=== PATIENT | male | born 1940 | race Caucasian/White ===

== ENCOUNTER 2018-03-19 12:21 | Day surgery (SDC) | payer MEDICARE ==
[~2018-03-19] VITALS: Ht 175.3 cm; Wt 129.1 kg
[~2018-03-19 12:21] MED LIST: AMLO5TAB95 PO; ATOR20TA66 PO; GLIP10TA11 PO; HYDR25TA4 PO; LIDOcaine Viscous 15ml cup ONE; LOSA100T28 PO; MIDAZolam 5mg/5ml vial ONE; PANT-47 PO; PIOG30TA71 PO; VENL75TA90 PO; fentaNYL/PF 50MCG/1 ML 2ML syringe ONE
[2018-03-19 12:30] VITALS: BP 163/81
[2018-03-19] MEDS ORDERED: GLIP5TAB13 PO (12:41)
[2018-03-19] MEDS ORDERED: OMEP20TA5 PO (12:42)
[2018-03-19] MEDS ORDERED: HYDR12.5 PO (12:44)
[2018-03-19] MEDS ORDERED: LINA5TAB4 PO (12:46)
[2018-03-19] MEDS ORDERED: DABI75CA3 PO (12:47)
[2018-03-19 13:18] VITALS: BP 144/78
[2018-03-19 13:28] VITALS: BP 143/65
[2018-03-19 13:38] VITALS: BP 140/66
[2018-03-19 13:48] VITALS: BP 148/68
== END 2018-03-19 12:55 | disposition home or self-care (01) ==
LOC: GI LAB 12:21
PROVIDERS: ATTEND Internal Medicine Gastroenterology
DX: R10.13 Epigastric pain (principal); I48.91 Unspecified atrial fibrillation; K21.9 Gastro-esophageal reflux disease without esophagitis; M19.90 Unspecified osteoarthritis, unspecified site; F32.9 Major depressive disorder, single episode, unspecified; I25.10 Atherosclerotic heart disease of native coronary artery without angina pectoris; E78.5 Hyperlipidemia, unspecified; I12.0 Hypertensive chronic kidney disease with stage 5 chronic kidney disease or end stage renal disease; E11.22 Type 2 diabetes mellitus with diabetic chronic kidney disease; N18.9 Chronic kidney disease, unspecified; G47.33 Obstructive sleep apnea (adult) (pediatric); Z98.84 Bariatric surgery status; Z90.89 Acquired absence of other organs; Z72.89 Other problems related to lifestyle; Z88.6 Allergy status to analgesic agent; Z88.5 Allergy status to narcotic agent; Z90.49 Acquired absence of other specified parts of digestive tract; Z79.01 Long term (current) use of anticoagulants; Z79.899 Other long term (current) drug therapy; Z98.890 Other specified postprocedural states
CPT/HCPCS: 43235; J2250; J3010; J7030; A4620; G0500

== ENCOUNTER 2018-09-05 12:07 | Emergency (ER) | payer MEDICARE ==
[~2018-09-05] VITALS: Ht 172.7 cm; Wt 129.5 kg
[~2018-09-05 12:07] MED LIST changes: -AMLO5TAB95 PO; +DABI75CA3 PO; -GLIP10TA11 PO; +GLIP5TAB13 PO; +HYDR12.5 PO; -LIDOcaine Viscous 15ml cup ONE; +LINA5TAB4 PO; +LOSA100T15 PO; -LOSA100T28 PO; -MIDAZolam 5mg/5ml vial ONE; +OMEP20TA5 PO; -PANT-47 PO; -fentaNYL/PF 50MCG/1 ML 2ML syringe ONE
[2018-09-05 13:11] LABS: BASOPHILS % (AUTO) 0.1 % (0-1); EOSINOPHILS % (AUTO) 0.2 % (0-6); HEMATOCRIT 43.9 % (42.0-52.0); HEMOGLOBIN 14.7 g/dl (14.0-17.9); LYMPHOCYTES # (AUTO) 0.3 X10'3 (1.1-4.8); LYMPHOCYTES % (AUTO) 5.4 % (21-51); MEAN CORPUSCULAR HEMOGLOBIN 32.2 PG (27.0-31.0); MEAN CORPUSCULAR HGB CONC 33.4 % (33.0-36.5); MEAN CORPUSCULAR VOLUME 96.3 FL (78-98); MEAN PLATELET VOLUME 7.6 FL (7.4-10.4); MONOCYTES # (AUTO) 0.4 X10'3 (0-0.9); MONOCYTES % (AUTO) 6.9 % (2-12); NEUTROPHILS # (AUTO) 4.5 X10'3 (1.8-7.7); NEUTROPHILS % (AUTO) 87.4 % (42-75); PLATELET COUNT 219 X10'3 (140-440); RED BLOOD COUNT 4.56 X10'6 (4.70-6.10); RED CELL DISTRIBUTION WIDTH 15.1 % (11.5-14.5); WHITE BLOOD COUNT 5.2 X10'3 (4.5-11.0)
[2018-09-05 13:35] LABS: ALANINE AMINOTRANSFERASE 36 U/L (12-78); ALBUMIN 3.2 G/DL (3.4-5.0); ALBUMIN/GLOBULIN RATIO 0.9 (1.1-1.5); ALKALINE PHOSPHATASE 82 IU/L (46-116); ANION GAP 7 (8-16); ASPARTATE AMINO TRANSFERASE 56 U/L (10-37); BILIRUBIN,TOTAL 0.7 MG/DL (0.1-1.0); BLOOD UREA NITROGEN 25 MG/DL (7-18); BUN/CREATININE RATIO 15.2 (5.4-32.0); CALCIUM 8.8 MG/DL (8.5-10.1); CHLORIDE 97 MMOL/L (99-107); CREATININE 1.64 MG/DL (0.60-1.10); GLUCOSE 92 MG/DL (70-104); INR 1.1 INR; PARTIAL THROMBOPLASTIN TIME 42 SECONDS (22-32); POTASSIUM 3.8 MMOL/L (3.5-5.1); PROTHROMBIN TIME 11.5 SECONDS (9.0-12.0); SODIUM 135 MMOL/L (135-145); TOTAL CARBON DIOXIDE 30.7 MMOL/L (24-32); TOTAL PROTEIN 6.6 G/DL (6.4-8.2); eGFR 41 ML/MIN
[2018-09-05] MEDS ORDERED: ONDA4TAB9 SL (13:53)
[2018-09-05 14:01] LABS: ETHANOL < 0.010 GM/DL (0.0-0.010)
[2018-09-05 14:17] LABS: CLARITY,URINE CLEAR (Clear); COLOR,URINE YELLOW (Yellow); GLUCOSE, URINE NEGATIVE (Neg); KETONES,URINE NEGATIVE (Neg); LEUKOCYTE ESTERASE ,URINE NEGATIVE (Neg); NITRITES, URINE NEGATIVE (Neg); OCCULT BLOOD,URINE SMALL (Neg); PH,URINE 5.5 (4.8-8.0); PROTEIN,URINE TRACE mg/dl (Neg); UROBILINOGEN,URINE 0.2 E.U/dL (0.2-1.0)
[2018-09-05 14:18] VITALS: BP 176/84
[2018-09-05 14:23] LABS: UA COLLECTION TYPE CLN CATCH MIDSTREAM
[2018-09-05 14:24] LABS: BACTERIA,URINE NONE SEEN /HPF (Neg); MUCUS STRANDS NONE SEEN /LPF (Neg); RBC,URINE 0-2 /HPF (0-2); SQUAMOUS EPITHELIAL CELL,UR NONE SEEN /LPF (FEW); WBC,URINE NONE SEEN /HPF (0-4)
== END 2018-09-05 14:20 | disposition home or self-care (01) ==
LOC: ER 12:08
DX: B34.9 Viral infection, unspecified (principal); I12.9 Hypertensive chronic kidney disease with stage 1 through stage 4 chronic kidney disease, or unspecified chronic kidney disease; E11.22 Type 2 diabetes mellitus with diabetic chronic kidney disease; N18.9 Chronic kidney disease, unspecified; K21.9 Gastro-esophageal reflux disease without esophagitis; E78.00 Pure hypercholesterolemia, unspecified; M19.90 Unspecified osteoarthritis, unspecified site; Z90.49 Acquired absence of other specified parts of digestive tract; Z88.6 Allergy status to analgesic agent; Z88.5 Allergy status to narcotic agent; Z79.899 Other long term (current) drug therapy; Z60.2 Problems related to living alone
CPT/HCPCS: 36415; 71045; 80053; 80320; 81001; 83605; 84145; 84484; 85025; 85610; 85730; 87040; 93005; 99284

== ENCOUNTER 2018-10-22 12:09 | Emergency (ER) | payer MEDICARE ==
[~2018-10-22] VITALS: Ht 170.2 cm; Wt 131.8 kg
[~2018-10-22 12:09] MED LIST changes: -LOSA100T15 PO; +LOSA100T57 PO
[2018-10-22 13:00] LABS: BASOPHILS % (AUTO) 0.3 % (0-1); EOSINOPHILS # (AUTO) 0.1 X10'3 (0-0.9); EOSINOPHILS % (AUTO) 1.2 % (0-6); HEMOGLOBIN 13.6 g/dl (14.0-17.9); LYMPHOCYTES # (AUTO) 0.9 X10'3 (1.1-4.8); LYMPHOCYTES % (AUTO) 14.9 % (21-51); MEAN CORPUSCULAR HEMOGLOBIN 32.4 PG (27.0-31.0); MEAN CORPUSCULAR HGB CONC 33.1 % (33.0-36.5); MEAN CORPUSCULAR VOLUME 97.8 FL (78-98); MONOCYTES # (AUTO) 0.5 X10'3 (0-0.9); MONOCYTES % (AUTO) 7.4 % (2-12); NEUTROPHILS # (AUTO) 4.6 X10'3 (1.8-7.7); NEUTROPHILS % (AUTO) 76.2 % (42-75); PLATELET COUNT 311 X10'3 (140-440); RED BLOOD COUNT 4.19 X10'6 (4.70-6.10); WHITE BLOOD COUNT 6.1 X10'3 (4.5-11.0)
[2018-10-22 13:19] LABS: ALANINE AMINOTRANSFERASE 28 U/L (12-78); ALBUMIN 3.6 G/DL (3.4-5.0); ALBUMIN/GLOBULIN RATIO 1.1 (1.1-1.5); ALKALINE PHOSPHATASE 147 IU/L (46-116); ANION GAP 9 (8-16); ASPARTATE AMINO TRANSFERASE 43 U/L (10-37); BILIRUBIN,TOTAL 0.7 MG/DL (0.1-1.0); BLOOD UREA NITROGEN 23 MG/DL (7-18); BUN/CREATININE RATIO 18.7 (5.4-32.0); CHLORIDE 102 MMOL/L (99-107); CREATININE 1.23 MG/DL (0.60-1.10); GLUCOSE 179 MG/DL (70-104); POTASSIUM 4.3 MMOL/L (3.5-5.1); SODIUM 141 MMOL/L (135-145); TOTAL CARBON DIOXIDE 29.7 MMOL/L (24-32); TOTAL PROTEIN 6.9 G/DL (6.4-8.2); eGFR 57 ML/MIN
[2018-10-22 13:22] LABS: INR 1.1 INR; PARTIAL THROMBOPLASTIN TIME 34 SECONDS (22-32); PROTHROMBIN TIME 10.7 SECONDS (9.0-12.0)
[2018-10-22 15:02] LABS: D-DIMER 0.68 MG/L FEU (0-0.50)
--- NOTE | 2018-10-22 15:11 | NUR ---
gait walk pt tolerated well. ambulated 50 ft, hr 78, 02 sat 95%
[2018-10-22 16:22] VITALS: BP 177/86
== END 2018-10-22 16:24 | disposition home or self-care (01) ==
LOC: ER 12:09
DX: R06.09 Other forms of dyspnea (principal); E78.00 Pure hypercholesterolemia, unspecified; I10 Essential (primary) hypertension; K21.9 Gastro-esophageal reflux disease without esophagitis; E11.9 Type 2 diabetes mellitus without complications; M19.90 Unspecified osteoarthritis, unspecified site; Z90.49 Acquired absence of other specified parts of digestive tract; Z98.890 Other specified postprocedural states; Z98.84 Bariatric surgery status; Z88.6 Allergy status to analgesic agent; Z88.5 Allergy status to narcotic agent; Z79.899 Other long term (current) drug therapy
CPT/HCPCS: 36415; 71045; 80053; 83880; 84484; 85025; 85379; 85610; 85730; 93005; 99284

== ENCOUNTER 2019-01-01 21:15 | Emergency (ER) | payer MEDICARE ==
[~2019-01-01] VITALS: Ht 157.5 cm; Wt 120.5 kg
[2019-01-01] MEDS ORDERED: acetaminophen 325mg tablet PO ONE (21:50)
[2019-01-01] MEDS ORDERED: normal saline 1000ML IV soln IVB ONE (21:55)
[2019-01-01] MEDS ORDERED: TETanus/Pertussis (Acell)/Diphther VAC/PF (Tdap-Adult) 0.5ml syringe IM ONE (21:55)
[2019-01-01] MEDS ORDERED: LIDOcaine 1% w/epiNEPHrine 1:200,000 30ml vial IM ONE (21:55)
[2019-01-01 23:12] VITALS: BP 149/76
== END 2019-01-01 23:15 | disposition home or self-care (01) ==
LOC: ER 21:19
DX: S06.0X0A Concussion without loss of consciousness, initial encounter (principal); S01.01XA Laceration without foreign body of scalp, initial encounter; I48.91 Unspecified atrial fibrillation; E78.00 Pure hypercholesterolemia, unspecified; I10 Essential (primary) hypertension; K21.9 Gastro-esophageal reflux disease without esophagitis; E11.9 Type 2 diabetes mellitus without complications; M19.90 Unspecified osteoarthritis, unspecified site; Z90.49 Acquired absence of other specified parts of digestive tract; Z90.89 Acquired absence of other organs; Z98.890 Other specified postprocedural states; Z88.5 Allergy status to narcotic agent; Z88.6 Allergy status to analgesic agent; Z79.899 Other long term (current) drug therapy; W01.190A Fall on same level from slipping, tripping and stumbling with subsequent striking against furniture, initial encounter; Y93.89 Activity, other specified; Y92.89 Other specified places as the place of occurrence of the external cause; Y99.8 Other external cause status
CPT/HCPCS: 12002; 70450; 93005; 99284; J3490

== ENCOUNTER 2019-02-17 12:42 | Outpatient (CLI) | payer MEDICARE | END 2019-02-17 23:59 | disposition home or self-care (01) | LOC: CARD DIAG 12:42 | PROVIDERS: ATTEND Internal Medicine Critical Care Medicine | DX: I34.0 Nonrheumatic mitral (valve) insufficiency (principal) | CPT/HCPCS: 93306 ==

== ENCOUNTER 2019-07-26 10:55 | Inpatient (IN) | payer MEDICARE ==
[~2019-07-26] VITALS: Ht 172.7 cm; Wt 125.0 kg
[~2019-07-26 10:55] MED LIST changes: +etomidate 2mg/ml inj. ONE; +sod chloride 0.9% 10ml flush syringe IV ONE
[2019-07-26 11:39] LABS: BASOPHILS % (AUTO) 0.1 % (0-1); EOSINOPHILS % (AUTO) 0.2 % (0-6); HEMATOCRIT 47.1 % (42.0-52.0); LYMPHOCYTES # (AUTO) 0.4 X10'3 (1.1-4.8); LYMPHOCYTES % (AUTO) 4.4 % (21-51); MEAN CORPUSCULAR HEMOGLOBIN 32.9 PG (27.0-31.0); MEAN CORPUSCULAR HGB CONC 33.9 g/dL (33.0-36.5); MEAN PLATELET VOLUME 7.9 FL (7.4-10.4); MONOCYTES # (AUTO) 0.4 X10'3 (0-0.9); MONOCYTES % (AUTO) 4.1 % (2-12); NEUTROPHILS # (AUTO) 8.4 X10'3 (1.8-7.7); NEUTROPHILS % (AUTO) 91.2 % (42-75); PLATELET COUNT 265 X10'3 (140-440); RED BLOOD COUNT 4.85 X10'6 (4.70-6.10); WHITE BLOOD COUNT 9.2 X10'3 (4.5-11.0)
[2019-07-26 11:55] LABS: ALANINE AMINOTRANSFERASE 28 U/L (12-78); ALBUMIN 3.9 G/DL (3.4-5.0); ALKALINE PHOSPHATASE 121 IU/L (46-116); ANION GAP 14 (8-16); ASPARTATE AMINO TRANSFERASE 37 U/L (10-37); BLOOD UREA NITROGEN 23 MG/DL (7-18); BUN/CREATININE RATIO 12.5 (5.4-32.0); CALCIUM 9.7 MG/DL (8.5-10.1); CHLORIDE 95 MMOL/L (99-107); CREATININE 1.84 MG/DL (0.60-1.10); GLUCOSE 272 MG/DL (70-104); LIPASE 111 U/L (73-393); POTASSIUM 4.1 MMOL/L (3.5-5.1); SODIUM 137 MMOL/L (135-145); TOTAL PROTEIN 7.7 G/DL (6.4-8.2); eGFR 36 ML/MIN
[2019-07-26] MEDS ORDERED: ondansetron/PF 4mg/2ml inj IV ONE (12:25)
[2019-07-26] MEDS ORDERED: normal saline 1000ML IV soln IVB ONE (12:25)
[2019-07-26] MEDS ORDERED: pantoprazole 40 MG vial IV ONE (12:25)
[2019-07-26 12:32] LABS: CLARITY,URINE SLIGHTLY CLOUDY (Clear); GLUCOSE, URINE 250 mg/dl (Neg); KETONES,URINE >=80 mg/dl (Neg); LEUKOCYTE ESTERASE ,URINE NEGATIVE (Neg); NITRITES, URINE NEGATIVE (Neg); OCCULT BLOOD,URINE TRACE-INTACT (Neg); PH,URINE 5.5 (4.8-8.0); PROTEIN,URINE 100 mg/dl (Neg)
[2019-07-26 12:34] LABS: COLOR,URINE DARK YELLOW (Yellow); UA COLLECTION TYPE VOIDED
[2019-07-26 12:45] LABS: WBC,URINE 0-4 /HPF (0-4)
[2019-07-26 12:46] LABS: AMORPHOUS URATES 1+; BACTERIA,URINE FEW /HPF (Neg); RBC,URINE 0-2 /HPF (0-2); SQUAMOUS EPITHELIAL CELL,UR FEW /LPF (FEW)
--- NOTE | 2019-07-26 14:20 | NUR ---
relieving RN for break, Dr Rasheed at bedside to reeval pt, plan to admit to hospital for bowel obstruction,
[2019-07-26] MEDS ORDERED: mag hydrox/Alum hydrox/simeth 30ml oral suspension PO PRN (14:30)
[2019-07-26] MEDS: K and/or MAG REPLACEMENT MC SCH (14:30)
[2019-07-26] MEDS ORDERED: glucagon, human recombinant 1mg kit SUBCUT PRN (14:30)
[2019-07-26] MEDS ORDERED: potassium CL 10mEq/100ml bag 100 ML IV PRN ×2 (14:30)
[2019-07-26] MEDS ORDERED: magnesium Cl slow-release 64mg tablet PO PRN (14:30)
[2019-07-26] MEDS ORDERED: HYDROcodone/acetaminophen 5mg/325mg tablet PO PRN (14:30)
[2019-07-26] MEDS ORDERED: dextrose ORAL solution 15 GM/59 ML bottle PO PRN ×2 (14:30)
[2019-07-26] MEDS ORDERED: magnesium hydroxide 30ml (MOM) UD suspension PO PRN (14:30)
[2019-07-26] MEDS ORDERED: HYDROcodone/acetaminophen 10/325mg tab PO PRN (14:30)
[2019-07-26] MEDS ORDERED: potassium Cl 20 mEq SR tablet PO PRN ×2 (14:30)
[2019-07-26] MEDS ORDERED: morphine 2 MG/ML inj. syringe IV PRN (14:30)
[2019-07-26] MEDS ORDERED: magnesium 4gm in 100ml NS 100 ML IV PRN (14:30)
[2019-07-26] MEDS ORDERED: bisacodyl 10mg suppository rectal RC PRN (14:30)
[2019-07-26] MEDS ORDERED: diphenhydrAMINE 50 mg/ml inj IV PRN (14:30)
[2019-07-26] MEDS ORDERED: MESSAGE TO PHARMACY PO ONE (14:30)
[2019-07-26] MEDS ORDERED: acetaminophen 325mg tablet PO PRN ×2 (14:30)
[2019-07-26] MEDS ORDERED: magnesium 2GM in 50ml NS 50 ML IV PRN (14:30)
[2019-07-26] MEDS ORDERED: acetaminophen 650mg rectal suppository RC PRN (14:30)
[2019-07-26] MEDS ORDERED: dextrose 50%-water 50ml dispensing syringe IV PRN ×2 (14:30)
[2019-07-26] MEDS ORDERED: diphenhydrAMINE 25mg capsule PO PRN (14:30)
[2019-07-26] MEDS ORDERED: INSU100V12 SQ (14:41)
[2019-07-26] MEDS ORDERED: VENL-190 PO (14:41)
[2019-07-26] MEDS ORDERED: METO50TA17 PO (14:41)
[2019-07-26] MEDS ORDERED: FLEC100T2 PO (14:41)
[2019-07-26 14:57] LABS: HEMOGLOBIN A1C 7.6 % (4.5-6.2)
[2019-07-26] MEDS: diatr meglu/diatrizoate 30ml oral sol.-(3 dose) bottle PO SCH ×4 (15:20→21:00)
--- NOTE | 2019-07-26 15:35 | NUR ---
pt resting in bed, req pain medication, gastropen given, pt stable, new primary obtaining pain medication
[2019-07-26] MEDS: morphine 2 MG/ML inj. syringe IV PRN ×2 (15:46→19:42)
[2019-07-26] MEDS: normal saline 1000ml 1,000 ML IV SCH (15:50)
--- NOTE | 2019-07-26 16:12 | NUR ---
relieving RN for break, assembly technician aware pt received 2nd dose of gastroview
--- NOTE | 2019-07-26 17:10 | NUR ---
pt to be transferred to [facility]. Report called to DESMOND Miller for continuation of care.
--- NOTE | 2019-07-26 17:10 | NUR ---
Received report from DESMOND Rodriguez. Awaiting for patient arrival to room 344a.
[2019-07-26] MEDS: metoclopramide 5 mg/ml inj IV PRN ×2 (17:17→23:17)
[2019-07-26 17:30] VITALS: BP 176/76
[2019-07-26] MEDS: ondansetron/PF 4mg/2ml inj IV PRN (17:57)
--- NOTE | 2019-07-26 18:00 | NUR ---
Patient in room [facility] 344. I have received report from Michelle LOGAN and had the opportunity to ask questions and assume patient care.
--- NOTE | 2019-07-26 18:08 | NUR ---
Problems reprioritized. Patient report given, questions answered & plan of care reviewed with DESMOND Quan.
--- NOTE | 2019-07-26 18:09 | NUR ---
Received patient at 1730. Patient alert and oriented, hard of hearing and c/o feeling nauseated. Zofran administered as ordered. Patient oriented to room and call light. Call light placed within patient's reach.
[2019-07-26 20:10] VITALS: BP 154/91
[2019-07-26] MEDS: flecainide 50mg tablet PO SCH (20:14)
[2019-07-26] MEDS ORDERED: temazepam 15mg capsule PO PRN (21:00)
[2019-07-26] MEDS ORDERED: losartan 50mg tablet PO SCH (21:00)
[2019-07-26] MEDS ORDERED: atorvastatin 10mg tablet PO SCH (21:00)
[2019-07-26] MEDS: insulin glargine (Lantus) pen - multi-dose SQ SCH (21:11)
[2019-07-26] MEDS: insulin Lispro (HumaLOG) vial - multi-dose SQ SCH (21:12)
--- NOTE | 2019-07-26 22:06 | NUR ---
per tele hr was up to 120'3 to 130's. pt was up to bathroom, back in bed now, assymptomatic. hr is coming down now. Addendum: 07/26/19 at 2206 by Misha Crockett RN Amended: Links added.
[2019-07-26] MEDS ORDERED: LORazepam 2 mg/ml vial IV PRN (23:40)
[2019-07-26] MEDS ORDERED: LORazepam 1 MG tablet PO PRN (23:40)
[2019-07-26] MEDS: thiamine 100mg tablet PO SCH (23:40)
[2019-07-26] MEDS ORDERED: thiamine inj. 100 MG in normal saline 100ml IV soln 100 ML IV ONE (23:40)
[2019-07-26] MEDS ORDERED: cyclobenzaprine 10mg tablet PO PRN (23:40)
[2019-07-26] MEDS ORDERED: haloperidol lactate 5mg/ml inj IM PRN (23:40)
[2019-07-26] MEDS ORDERED: dicyclomine 10 MG capsule PO PRN (23:40)
[2019-07-26] MEDS ORDERED: haloperidol 5mg tablet PO PRN (23:40)
[2019-07-27] VITALS (26 sets, daily range): BP systolic 54–152; BP diastolic 28–77
[2019-07-27] MEDS: ondansetron/PF 4mg/2ml inj IV PRN (00:07)
[2019-07-27] MEDS: normal saline 1000ml 1,000 ML IV SCH ×3 (02:38→16:30)
[2019-07-27 05:54] LABS: ALANINE AMINOTRANSFERASE 21 U/L (12-78); ALBUMIN 3.4 G/DL (3.4-5.0); ALBUMIN/GLOBULIN RATIO 0.9 (1.1-1.5); ALKALINE PHOSPHATASE 107 IU/L (46-116); ANION GAP 11 (8-16); ASPARTATE AMINO TRANSFERASE 26 U/L (10-37); BILIRUBIN,TOTAL 0.9 MG/DL (0.1-1.0); BLOOD UREA NITROGEN 32 MG/DL (7-18); CALCIUM 8.7 MG/DL (8.5-10.1); CHLORIDE 100 MMOL/L (99-107); CHOL/HDL RATIO 1.9 (0.00-4.99); CHOLESTEROL 190 MG/DL (0-200); CREATININE 2.46 MG/DL (0.60-1.10); GLUCOSE 321 MG/DL (70-104); HDL CHOLESTEROL 101 MG/DL (35-60); LDL CHOLESTEROL 80 MG/DL (50-100); LIPASE 100 U/L (73-393); MAGNESIUM 2.3 MG/DL (1.5-2.4); PHOSPHORUS 4.4 MG/DL (2.3-4.5); POTASSIUM 4.2 MMOL/L (3.5-5.1); SODIUM 139 MMOL/L (135-145); TOTAL CARBON DIOXIDE 27.6 MMOL/L (24-32); TRIGLYCERIDES 100 MG/DL (20-135); eGFR 26 ML/MIN
[2019-07-27] MEDS: morphine 2 MG/ML inj. syringe IV PRN (05:54)
[2019-07-27 05:56] LABS: BASOPHILS % (AUTO) 0.1 % (0-1); EOSINOPHILS % (AUTO) 0 % (0-6); HEMATOCRIT 49.1 % (42.0-52.0); HEMOGLOBIN 16.3 g/dl (14.0-17.9); LYMPHOCYTES # (AUTO) 0.4 X10'3 (1.1-4.8); LYMPHOCYTES % (AUTO) 4.9 % (21-51); MEAN CORPUSCULAR HEMOGLOBIN 32.6 PG (27.0-31.0); MEAN CORPUSCULAR HGB CONC 33.2 g/dL (33.0-36.5); MEAN CORPUSCULAR VOLUME 98.1 FL (78-98); MEAN PLATELET VOLUME 8.4 FL (7.4-10.4); MONOCYTES # (AUTO) 0.9 X10'3 (0-0.9); MONOCYTES % (AUTO) 10.8 % (2-12); NEUTROPHILS # (AUTO) 6.7 X10'3 (1.8-7.7); NEUTROPHILS % (AUTO) 84.2 % (42-75); PLATELET COUNT 259 X10'3 (140-440); RED BLOOD COUNT 5.01 X10'6 (4.70-6.10); RED CELL DISTRIBUTION WIDTH 15.5 % (11.5-14.5)
--- NOTE | 2019-07-27 06:15 | NUR ---
Patient in room CONN[facility] 344. I have received report from DESMOND Quan and had the opportunity to ask questions and assume patient care.
--- NOTE | 2019-07-27 06:20 | NUR ---
Problems reprioritized. Patient report given, questions answered & plan of care reviewed with Avni LOGAN.
[2019-07-27] MEDS: metoclopramide 5 mg/ml inj IV PRN (06:52)
[2019-07-27] MEDS: diatr meglu/diatrizoate 30ml oral sol.-(3 dose) bottle PO SCH ×2 (06:55→20:59)
[2019-07-27] MEDS: flecainide 50mg tablet PO SCH (07:58)
[2019-07-27] MEDS: thiamine 100mg tablet PO SCH (07:59)
[2019-07-27] MEDS ORDERED: pantoprazole 40mg Tablet.DR PO SCH (08:00)
[2019-07-27] MEDS ORDERED: multivitamins, therapeutics tablet PO SCH (08:00)
[2019-07-27] MEDS ORDERED: HYDROchlorothiazide 12.5mg capsule PO SCH (08:00)
[2019-07-27] MEDS ORDERED: folic acid 1mg tablet PO SCH (08:00)
[2019-07-27] MEDS ORDERED: metoprolol tartrate 50mg tablet PO SCH (08:00)
[2019-07-27] MEDS: K and/or MAG REPLACEMENT MC SCH (08:00)
[2019-07-27] MEDS: insulin Lispro (HumaLOG) vial - multi-dose SQ SCH (08:03)
--- NOTE | 2019-07-27 09:16 | NUR ---
Notified by another nurse that patient wanting to void but appears to be SOB. Went to check on patient, patient O2 87% on 2LNC, diaphoretic and audible crackles with respirations, normal saline @100ml/hr turned off. Increased O2 to 4LNC and patient now at 92-93%. At this time Dr. Spencer in to round on patient and was made aware of events. Dr. Chris ordered to have stat EKG and Chest Xray and for patient to be transferred to ICU. Dr. Faye notified. Patient now sitting on BSC. Will continue to monitor.
[2019-07-27] MEDS ORDERED: normal saline 500ml IV soln 500 ML IV ONE (09:50)
[2019-07-27] MEDS ORDERED: propofol 1000mg/100ml bottle 100 ML IV ONE ×2 (10:13→13:18)
[2019-07-27] MEDS ORDERED: midazolam 2 mg/2 ml injection ONE (10:13)
--- NOTE | 2019-07-27 10:14 | NUR ---
Problems reprioritized. Patient report given, questions answered & plan of care reviewed with DESMOND RAO.
--- NOTE | 2019-07-27 10:15 | NUR ---
TRANSFERRED PATIENT TO ROOM 2046. JALEN, RN ACCEPTING RN AWARE PATIENT BP WAS 78/42.
[2019-07-27] MEDS ORDERED: NORepinephrine 8mg/ 250ml NS 250 ML IV ONE ×2 (10:52→16:14)
--- NOTE | 2019-07-27 11:00 | NUR ---
Dr. Velez at bedside Central line and west placed without difficulty ABG and mixed venous drawn Oral n/g inserted duque cath inserted Pt on vent with sedation b/p low 90 sys fluids and levophed started Cxr done Abd large and firm Lung sounds wheezy SAt 100 % on fio2 100 %
[2019-07-27] MEDS ORDERED: magnesium hydroxide 30ml (MOM) UD suspension PO PRN (11:30)
[2019-07-27] MEDS ORDERED: ipratropium/albuterol 3ml nebule NEB PRN (11:30)
[2019-07-27 11:31] LABS: ABG BASE EXCESS -6.1 mmol/L (-2.0-3.0); ABG HCO3 20.2 mmol/L (22.0-26.0); ABG PCO2 (T) 42.8 mmHg (35.0-45.0); ABG PH (T) 7.292 (7.350-7.450); ABG PO2 (T) 269.1 mmHg (83-108); FCOHb 0.3 % (0.5-1.5); FMetHb 0.1 % (0.3-1.12); FO2Hb 98.6 % (94-100); MINUTE VOLUME 10 L/min; PEEP 5 cm H2O; RESPIRATORY RATE 16 b/min; RESPIRATORY RATE (OBSERVED) 16 b/min; TIDAL VOLUME 550 mL; TOTAL HEMOGLOBIN 13.2 G/dl (14.0-17.9)
[2019-07-27 11:40] LABS: OXYGEN SATURATION (MIXED VEN) 65.4 % (60-80); PO2 MIXED VENOUS (TEMP COR) 39.9 mmHg (35-46)
--- NOTE | 2019-07-27 13:26 | NUR ---
received this patient from stephon oquendo RN
--- NOTE | 2019-07-27 13:26 | NUR ---
patient was emergently intubated this afternoon per patient report from RN, patient is currently on propofol at 16.9mcg, multiple saline boluses have been given and levo is currently at 26.9mcg. patients BP is currently is 111/60 MAP of 77.
[2019-07-27] MEDS: vancomycin/NS 1 GM ADD-VANTAGE 250 ML IV SCH ×2 (13:38→14:38)
--- NOTE | 2019-07-27 14:22 | NUR ---
DM Consult: A1C 7.6. Pt admit w/ N/V found to have SBO. CT also showed moderate to large umbilical hernia, reflux esophagitis per MD note. Pt hx etoh on protocol. Currently intubated for respiratory and cardiac shock r/t SBO prior 4-5 days from admit per MD note; NPO w/ NG suction in place. Pt SO did report one small BM prior to admit w/ no resolution of symptoms. 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 High risk OR per MD note. Will monitor for nutrition support needs following GI results. Rec: 1. IF SBO resolved and cleared for EN per GI MD; Vital HP at ml/hr goal 2. monitor for nutrition support needs if prolonged intubation 3. monitor for PN needs if SBO persists 4. thiamin/MVI/folic for etoh per MD 5. weekly wts Addendum: 07/27/19 at [address] Amended: Links added.
[2019-07-27] MEDS: pantoprazole 40 MG vial IV SCH (14:41)
[2019-07-27] MEDS: cefepime 2g/NS 100ml ADVANTAGE 100 ML IV SCH ×2 (14:41→20:58)
[2019-07-27] MEDS ORDERED: sevoflurane 250ml liquid IH ONE (14:51)
[2019-07-27] MEDS ORDERED: NORepinephrine bitartrate 8 MG in NS 250 ML BAG (32 mcg/ml) IV ONE (14:51)
--- NOTE | 2019-07-27 14:52 | NUR ---
patient taken to OR
[2019-07-27] MEDS ORDERED: rocuronium 10mg/ml inj IV ONE (14:54)
[2019-07-27] MEDS ORDERED: fentaNYL /PF 50mcg/ml 5ml ampule ONE (15:10)
[2019-07-27] MEDS ORDERED: normal saline 1000ml 1,000 ML IV PRN (16:16)
[2019-07-27] MEDS ORDERED: proCHLORperazine 10 MG/2 ml inj IV PRN (16:20)
[2019-07-27] MEDS ORDERED: albuterol 2.5 MG/3 ML nebule NEB PRN (16:30)
[2019-07-27] MEDS ORDERED: fentaNYL/PF 50MCG/1 ML 2ML syringe IV PRN (16:30)
[2019-07-27] MEDS ORDERED: midazolam 2 mg/2 ml injection IV ONE (16:30)
--- NOTE | 2019-07-27 16:40 | NUR ---
TF Consult: Pt s/p ex lap just returned from OR per RN MAP currently 85. OG in place per RN. TF recs below. Will monitor for TF tolerance post-op. DM Consult: A1C 7.6. Pt admit w/ N/V found to have SBO. CT also showed moderate to large umbilical hernia, reflux esophagitis per MD note. Pt hx etoh on protocol. Currently intubated for respiratory and cardiac shock r/t SBO prior 4-5 days from admit per MD note; NPO w/ NG suction in place. Pt SO did report one small BM prior to admit w/ no resolution of symptoms. 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 High risk OR per MD note. Will monitor for nutrition support needs following GI results. Rec: 1. OGTF per MD using Vital High Protein at 95ml/hr goal. to provide 2280ml fluid, 1915ml free water, 2280kcals, and 200g protein. Initiate at 20ml/hr and advance 20ml Q8 to goal as tolerated. 2. water flush 200ml Q4 3. prealbumin Q /; daily wts 4. thiamin/MVI/folic for etoh per MD 5. weekly wts Addendum: 07/27/19 at [address] Amended: Links added.
[2019-07-27] MEDS: NORepinephrine 8mg/ 250ml NS 250 ML IV SCH ×2 (17:02→21:30)
[2019-07-27] MEDS ORDERED: INSULIN R 100 UNIT in NS 100ML (1 UNIT/1 ML) BAG IV SCH (17:29)
[2019-07-27] MEDS ORDERED: acetaminophen 325mg/10.15ml oral unit dose solution NG PRN ×2 (17:30)
[2019-07-27] MEDS ORDERED: dextrose ORAL solution 15 GM/59 ML bottle NG PRN ×2 (17:33→17:47)
[2019-07-27] MEDS ORDERED: cyclobenzaprine 10mg tablet NG PRN (17:33)
[2019-07-27] MEDS ORDERED: dicyclomine 10 MG capsule NG PRN (17:34)
[2019-07-27] MEDS ORDERED: diphenhydrAMINE 25 MG/10 ML UD oral solution NG PRN (17:48)
[2019-07-27] MEDS ORDERED: LORazepam 1 MG tablet NG PRN (17:49)
[2019-07-27] MEDS ORDERED: haloperidol 5mg tablet NG PRN (17:49)
[2019-07-27] MEDS ORDERED: mag hydrox/Alum hydrox/simeth 30ml oral suspension NG PRN (17:50)
[2019-07-27] MEDS ORDERED: losartan 50mg tablet NG SCH (17:50)
[2019-07-27] MEDS ORDERED: magnesium hydroxide 30ml (MOM) UD suspension NG PRN ×2 (17:51→17:52)
[2019-07-27] MEDS ORDERED: temazepam 15mg capsule NG PRN (17:51)
[2019-07-27] MEDS ORDERED: metoprolol tartrate 50mg tablet NG SCH (17:51)
[2019-07-27] MEDS ORDERED: potassium Cl 20 mEq SR tablet NG PRN ×2 (17:54→17:55)
[2019-07-27] MEDS ORDERED: HYDROchlorothiazide 12.5mg capsule NG SCH (17:55)
--- NOTE | 2019-07-27 18:25 | NUR ---
Patient in room ICU 2046. I have received report and had the opportunity to ask questions and assume patient care.
--- NOTE | 2019-07-27 18:30 | NUR ---
pt has propofol running. pt switched to versed and fentanyl per md order
--- NOTE | 2019-07-27 19:20 | NUR ---
pt ordered to be on Flowtrack. Flowtrack transduced to art line with good waveform.
[2019-07-27] MEDS: midazolam 100mg in NS 100ml 100 ML IV PRN (19:22)
[2019-07-27] MEDS: FENTANYL-0.9 % NACL/PF 100 ML IV PRN (19:22)
--- NOTE | 2019-07-27 20:41 | NUR ---
assessed pt g tube prior to giving meds. was unable to confirm tube placement, looked at xray report which said tube is in distal esophagus and needs to be advanced. upon advancement discovered that the tube was looped and kinked in the mouth. og tube removed and replaced. 18 og tube placed. placement confirmed through auscultation. tube feeding to begin tomorrow.
[2019-07-27] MEDS: atorvastatin 10mg tablet NG SCH (20:58)
[2019-07-27] MEDS: flecainide 50mg tablet NG SCH (20:58)
[2019-07-27] MEDS: insulin glargine (Lantus) pen - multi-dose SQ SCH (21:00)
[2019-07-28] VITALS (23 sets, daily range): BP systolic 81–128; BP diastolic 29–86
[2019-07-28] MEDS: normal saline 1000ml 1,000 ML IV SCH ×6 (00:46→22:30)
[2019-07-28 04:00] LABS: BASOPHILS % (AUTO) 0.2 % (0-1); EOSINOPHILS % (AUTO) 0 % (0-6); HEMOGLOBIN 13.5 g/dl (14.0-17.9); LYMPHOCYTES # (AUTO) 0.7 X10'3 (1.1-4.8); LYMPHOCYTES % (AUTO) 5.7 % (21-51); MEAN CORPUSCULAR HEMOGLOBIN 32.6 PG (27.0-31.0); MEAN CORPUSCULAR HGB CONC 32.2 g/dL (33.0-36.5); MEAN CORPUSCULAR VOLUME 101.5 FL (78-98); MONOCYTES # (AUTO) 1.1 X10'3 (0-0.9); MONOCYTES % (AUTO) 8.9 % (2-12); NEUTROPHILS # (AUTO) 10.8 X10'3 (1.8-7.7); NEUTROPHILS % (AUTO) 85.2 % (42-75); PLATELET COUNT 251 X10'3 (140-440); RED BLOOD COUNT 4.14 X10'6 (4.70-6.10); RED CELL DISTRIBUTION WIDTH 15.7 % (11.5-14.5); WHITE BLOOD COUNT 12.7 X10'3 (4.5-11.0)
[2019-07-28 04:03] LABS: PARTIAL THROMBOPLASTIN TIME 25 SECONDS (22-32)
[2019-07-28] MEDS: midazolam 100mg in NS 100ml 100 ML IV PRN ×2 (04:04→19:28)
[2019-07-28] MEDS: FENTANYL-0.9 % NACL/PF 100 ML IV PRN ×2 (04:04→19:28)
[2019-07-28 04:09] LABS: ALANINE AMINOTRANSFERASE 30 U/L (12-78); ALBUMIN 2.4 G/DL (3.4-5.0); ALBUMIN/GLOBULIN RATIO 0.8 (1.1-1.5); ALKALINE PHOSPHATASE 102 IU/L (46-116); ANION GAP 16 (8-16); ASPARTATE AMINO TRANSFERASE 53 U/L (10-37); BLOOD UREA NITROGEN 53 MG/DL (7-18); CALCIUM 7.3 MG/DL (8.5-10.1); CHLORIDE 109 MMOL/L (99-107); CREATININE 2.79 MG/DL (0.60-1.10); GLUCOSE 142 MG/DL (70-104); LIPASE < 50 U/L (73-393); MAGNESIUM 1.3 MG/DL (1.5-2.4); POTASSIUM 4.4 MMOL/L (3.5-5.1); PREALBUMIN 15.3 MG/DL (19-36); SODIUM 142 MMOL/L (135-145); TOTAL CARBON DIOXIDE 17.2 MMOL/L (24-32); TOTAL PROTEIN 5.4 G/DL (6.4-8.2); eGFR 22 ML/MIN
[2019-07-28 04:56] LABS: ABG BASE EXCESS -11.9 mmol/L (-2.0-3.0); ABG HCO3 15.6 mmol/L (22.0-26.0); ABG OXYGEN SATURATION 95.5 % (95-98); ABG PCO2 (T) 41.2 mmHg (35.0-45.0); ABG PH (T) 7.196 (7.350-7.450); ABG PO2 (T) 88.7 mmHg (83-108); FCOHb 1.1 % (0.5-1.5); FMetHb 0.3 % (0.3-1.12); FO2Hb 94.2 % (94-100); MINUTE VOLUME 8 L/min; PATIENT TEMPERATURE 37.3; PEEP 5 cm H2O; RESPIRATORY RATE 12 b/min; RESPIRATORY RATE (OBSERVED) 14 b/min; TIDAL VOLUME 550 mL; TOTAL HEMOGLOBIN 14.2 G/dl (14.0-17.9)
--- NOTE | 2019-07-28 04:57 | NUR ---
arterial line positional with severely dampened waveform. line has been flushed, redressed, retaped, and the wrist has been repositioned with no improvement.
[2019-07-28] MEDS ORDERED: albumin (Human) 5% 250ml 250 ML IV ONE ×2 (05:40)
--- NOTE | 2019-07-28 05:47 | NUR ---
pt diastolic remaining at 30. pt is maxed out on levophed. md notified. albumin ordered
--- NOTE | 2019-07-28 06:17 | NUR ---
Problems reprioritized. Patient report given, questions answered & plan of care reviewed
--- NOTE | 2019-07-28 06:43 | NUR ---
Received report from DESMOND Rondon
[2019-07-28 07:27] LABS: TOTAL CELLS COUNTED 100
[2019-07-28 07:28] LABS: GIANT PLATELET FEW; PLATELET ESTIMATE NORMAL; TOXIC VACUOLATION 1+
[2019-07-28] MEDS: ipratropium/albuterol 3ml nebule NEB SCH ×5 (07:49→23:02)
[2019-07-28] MEDS ORDERED: famotidine/PF 10 mg/ml inj IV SCH (08:00)
[2019-07-28] MEDS: K and/or MAG REPLACEMENT MC SCH (08:00)
[2019-07-28] MEDS: pantoprazole 40 MG vial IV SCH (08:00)
[2019-07-28] MEDS: flecainide 50mg tablet NG SCH ×2 (10:12→19:29)
[2019-07-28] MEDS: cefepime 2g/NS 100ml ADVANTAGE 100 ML IV SCH (10:12)
[2019-07-28] MEDS: MULTIVIT-MIN/FERROUS GLUCONATE 9 MG/15 ML LIQUID NG SCH (10:13)
[2019-07-28] MEDS: thiamine 100mg tablet NG SCH (10:13)
[2019-07-28] MEDS: folic acid 1mg tablet NG SCH (10:13)
[2019-07-28] MEDS: NORepinephrine 8mg/ 250ml NS 250 ML IV SCH ×2 (10:14→22:03)
[2019-07-28] MEDS ORDERED: normal saline 1000ml 1,000 ML IV ONE ×3 (11:10→18:40)
--- NOTE | 2019-07-28 11:30 | NUR ---
F/u: Pt TF held post-op r/t hemodynamic instability MAP decreased to 50-58 so far today. No nutrition at this time per RN. LBM 07/26. Pt s/p reduction internal hernia and closure of defect subsequent to audrey-en-y. Will monitor for EN initiation once more stable per MD. Addendum: 07/28/19 at [address] Amended: Links added.
[2019-07-28] MEDS ORDERED: dextrose 50%-water 50ml dispensing syringe IV PRN ×2 (16:50)
[2019-07-28] MEDS ORDERED: dextrose ORAL solution 15 GM/59 ML bottle PO PRN ×2 (16:50)
[2019-07-28] MEDS ORDERED: glucagon, human recombinant 1mg kit SUBCUT PRN (16:50)
[2019-07-28] MEDS ORDERED: MESSAGE TO PHARMACY PO ONE (16:50)
[2019-07-28 17:47] LABS: CLARITY,URINE TURBID (Clear); COLOR,URINE YELLOW (Yellow); GLUCOSE, URINE NEGATIVE (Neg); KETONES,URINE TRACE mg/dl (Neg); LEUKOCYTE ESTERASE ,URINE NEGATIVE (Neg); NITRITES, URINE NEGATIVE (Neg); OCCULT BLOOD,URINE LARGE (Neg); PROTEIN,URINE 30 mg/dl (Neg); UROBILINOGEN,URINE 0.2 E.U/dL (0.2-1.0)
[2019-07-28 17:52] LABS: UA COLLECTION TYPE FOLEY CATH
[2019-07-28 17:55] LABS: SQUAMOUS EPITHELIAL CELL,UR MANY /LPF (FEW)
[2019-07-28 17:57] LABS: COARSE GRANULAR CAST 0-3 /LPF (NEGATIVE); FINE GRANULAR CAST 0-3 /LPF (NEGATIVE); MUCUS STRANDS NONE SEEN /LPF (Neg); RENAL CELLS, URINE FEW /HPF
[2019-07-28 18:00] LABS: RBC,URINE 50-100 /HPF (0-2); WBC,URINE 0-4 /HPF (0-4)
[2019-07-28 18:01] LABS: AMORPHOUS URATES 4+; BACTERIA,URINE NONE SEEN /HPF (Neg); TRANSITIONAL EPI CELLS,URINE MODERATE /HPF
[2019-07-28] MEDS: piperacillin/tazo 3.375gm/50ml 50 ML IV SCH (18:25)
--- NOTE | 2019-07-28 18:43 | NUR ---
Report given to DESMOND Rondon
--- NOTE | 2019-07-28 18:45 | NUR ---
Patient in room ICU 2046. I have received report and had the opportunity to ask questions and assume patient care.
[2019-07-28 18:57] LABS: UA EOSINOPHILS NO EOS /HPF
[2019-07-28] MEDS: mineral oil/petrolatum ophthal oint EACHEYE SCH (19:28)
[2019-07-28] MEDS: nystatin 15 GM powder TP SCH (19:29)
[2019-07-28] MEDS: lactobacillus rhamnosus 10,000 MMU CELLS/CAPSULE PO SCH (19:29)
[2019-07-28] MEDS: atorvastatin 10mg tablet NG SCH (19:29)
[2019-07-28] MEDS: famotidine/PF 10 mg/ml inj IV SCH (19:29)
[2019-07-28] MEDS: insulin Lispro (HumaLOG) vial - multi-dose SQ SCH (20:07)
[2019-07-28] MEDS: insulin glargine (Lantus) pen - multi-dose SQ SCH (20:08)
[2019-07-29] VITALS (24 sets, daily range): BP systolic 96–138; BP diastolic 38–54
[2019-07-29] MEDS: piperacillin/tazo 3.375gm/50ml 50 ML IV SCH ×3 (00:31→16:41)
[2019-07-29] MEDS: mineral oil/petrolatum ophthal oint EACHEYE SCH ×4 (01:59→20:24)
[2019-07-29] MEDS: insulin Lispro (HumaLOG) vial - multi-dose SQ SCH ×4 (02:01→20:44)
[2019-07-29] MEDS: ipratropium/albuterol 3ml nebule NEB SCH ×6 (02:27→22:37)
[2019-07-29 02:47] LABS: BASOPHILS % (AUTO) 0.3 % (0-1); EOSINOPHILS % (AUTO) 0.1 % (0-6); LYMPHOCYTES # (AUTO) 0.4 X10'3 (1.1-4.8); LYMPHOCYTES % (AUTO) 3.7 % (21-51); MEAN CORPUSCULAR HEMOGLOBIN 32.8 PG (27.0-31.0); MEAN CORPUSCULAR HGB CONC 32.3 g/dL (33.0-36.5); MEAN CORPUSCULAR VOLUME 101.5 FL (78-98); MEAN PLATELET VOLUME 8.9 FL (7.4-10.4); MONOCYTES # (AUTO) 1.3 X10'3 (0-0.9); MONOCYTES % (AUTO) 11.5 % (2-12); NEUTROPHILS # (AUTO) 9.3 X10'3 (1.8-7.7); NEUTROPHILS % (AUTO) 84.4 % (42-75); PLATELET COUNT 249 X10'3 (140-440); RED BLOOD COUNT 3.64 X10'6 (4.70-6.10); RED CELL DISTRIBUTION WIDTH 16.2 % (11.5-14.5)
[2019-07-29 02:56] LABS: PARTIAL THROMBOPLASTIN TIME 36 SECONDS (22-32)
[2019-07-29 03:00] LABS: ALANINE AMINOTRANSFERASE 23 U/L (12-78); ALBUMIN 2.1 G/DL (3.4-5.0); ALBUMIN/GLOBULIN RATIO 0.6 (1.1-1.5); ALKALINE PHOSPHATASE 94 IU/L (46-116); ANION GAP 14 (8-16); ASPARTATE AMINO TRANSFERASE 29 U/L (10-37); BILIRUBIN,TOTAL 0.5 MG/DL (0.1-1.0); BLOOD UREA NITROGEN 66 MG/DL (7-18); BUN/CREATININE RATIO 23.1 (5.4-32.0); CALCIUM 7.4 MG/DL (8.5-10.1); CHLORIDE 113 MMOL/L (99-107); CREATININE 2.86 MG/DL (0.60-1.10); GLUCOSE 304 MG/DL (70-104); LIPASE < 50 U/L (73-393); MAGNESIUM 1.5 MG/DL (1.5-2.4); PHOSPHORUS 5.2 MG/DL (2.3-4.5); POTASSIUM 4.1 MMOL/L (3.5-5.1); SODIUM 146 MMOL/L (135-145); TOTAL PROTEIN 5.4 G/DL (6.4-8.2); eGFR 22 ML/MIN
[2019-07-29 03:14] LABS: NUCLEATED RED BLOOD CELLS 1 /100WBC (0-0); PLATELET ESTIMATE NORMAL; TOTAL CELLS COUNTED 100
[2019-07-29 03:15] LABS: ANISOCYTOSIS 1+; GIANT PLATELET FEW; TOXIC VACUOLATION 1+
[2019-07-29] MEDS: normal saline 1000ml 1,000 ML IV SCH ×3 (04:40→14:32)
[2019-07-29 05:11] LABS: ABG BASE EXCESS -8.2 mmol/L (-2.0-3.0); ABG OXYGEN SATURATION 94.8 % (95-98); ABG PCO2 (T) 45.5 mmHg (35.0-45.0); ABG PH (T) 7.239 (7.350-7.450); ABG PO2 (T) 77.7 mmHg (83-108); ALLEN'S TEST Positive; FCOHb 0.3 % (0.5-1.5); FMetHb 0.1 % (0.3-1.12); FO2Hb 94.4 % (94-100); MINUTE VOLUME 7 L/min; PATIENT TEMPERATURE 37.2; PEEP 5 cm H2O; RESPIRATORY RATE 12 b/min; RESPIRATORY RATE (OBSERVED) 12 b/min; TIDAL VOLUME 550 mL; TOTAL HEMOGLOBIN 12.9 G/dl (14.0-17.9)
[2019-07-29] MEDS: NORepinephrine 8mg/ 250ml NS 250 ML IV SCH ×2 (06:44→21:41)
[2019-07-29] MEDS: K and/or MAG REPLACEMENT MC SCH (08:00)
[2019-07-29] MEDS: flecainide 50mg tablet NG SCH ×2 (09:02→20:23)
[2019-07-29] MEDS: MULTIVIT-MIN/FERROUS GLUCONATE 9 MG/15 ML LIQUID NG SCH (09:02)
[2019-07-29] MEDS: folic acid 1mg tablet NG SCH (09:02)
[2019-07-29] MEDS: famotidine/PF 10 mg/ml inj IV SCH ×2 (09:02→20:24)
[2019-07-29] MEDS: lactobacillus rhamnosus 10,000 MMU CELLS/CAPSULE PO SCH ×2 (09:02→20:23)
[2019-07-29] MEDS: thiamine 100mg tablet NG SCH (09:03)
[2019-07-29] MEDS: nystatin 15 GM powder TP SCH ×2 (09:03→20:24)
[2019-07-29] MEDS: FENTANYL-0.9 % NACL/PF 100 ML IV PRN (11:26)
[2019-07-29] MEDS: midazolam 100mg in NS 100ml 100 ML IV PRN (11:27)
--- NOTE | 2019-07-29 12:32 | NUR ---
F/u: Pt TF OK to start today per MD since more stable MAP in '. Will monitor for TF tolerance. Addendum: 07/29/19 at [address] Amended: Links added.
--- NOTE | 2019-07-29 15:50 | NUR ---
TF Consult: Pt TF orders already in place; MATHEW d/w RN can initiate and advance per protocol. Addendum: 07/29/19 at [address] Amended: Links added.
--- NOTE | 2019-07-29 18:21 | NUR ---
Problems reprioritized. Patient report given, questions answered & plan of care reviewed with Amber LOGAN.
[2019-07-29] MEDS: atorvastatin 10mg tablet NG SCH (20:23)
[2019-07-29] MEDS: apixaban 5mg tablet PO SCH (20:24)
[2019-07-29] MEDS: insulin glargine (Lantus) pen - multi-dose SQ SCH (21:27)
[2019-07-30] VITALS (24 sets, daily range): BP systolic 111–156; BP diastolic 39–63
[2019-07-30] MEDS: midazolam 100mg in NS 100ml 100 ML IV PRN ×3 (00:14→23:53)
[2019-07-30] MEDS: normal saline 1000ml 1,000 ML IV SCH ×2 (00:15→03:07)
[2019-07-30] MEDS: piperacillin/tazo 3.375gm/50ml 50 ML IV SCH ×4 (00:17→23:53)
[2019-07-30] MEDS: insulin Lispro (HumaLOG) vial - multi-dose SQ SCH (02:30)
[2019-07-30] MEDS: mineral oil/petrolatum ophthal oint EACHEYE SCH ×4 (02:31→21:11)
[2019-07-30] MEDS: ipratropium/albuterol 3ml nebule NEB SCH ×6 (03:01→22:36)
[2019-07-30 03:47] LABS: ALANINE AMINOTRANSFERASE 17 U/L (12-78); ALBUMIN 1.7 G/DL (3.4-5.0); ALBUMIN/GLOBULIN RATIO 0.5 (1.1-1.5); ALKALINE PHOSPHATASE 84 IU/L (46-116); ANION GAP 12 (8-16); ASPARTATE AMINO TRANSFERASE 19 U/L (10-37); BILIRUBIN,TOTAL 0.5 MG/DL (0.1-1.0); BLOOD UREA NITROGEN 58 MG/DL (7-18); BUN/CREATININE RATIO 27.9 (5.4-32.0); CALCIUM 8.2 MG/DL (8.5-10.1); CHLORIDE 117 MMOL/L (99-107); CREATININE 2.08 MG/DL (0.60-1.10); GLUCOSE 191 MG/DL (70-104); LIPASE < 50 U/L (73-393); MAGNESIUM 1.6 MG/DL (1.5-2.4); PARTIAL THROMBOPLASTIN TIME 36 SECONDS (22-32); POTASSIUM 3.6 MMOL/L (3.5-5.1); SODIUM 148 MMOL/L (135-145); TOTAL CARBON DIOXIDE 19.2 MMOL/L (24-32); eGFR 31 ML/MIN
[2019-07-30 03:49] LABS: BASOPHILS % (AUTO) 0.4 % (0-1); EOSINOPHILS % (AUTO) 0.5 % (0-6); HEMATOCRIT 34.3 % (42.0-52.0); HEMOGLOBIN 11.2 g/dl (14.0-17.9); LYMPHOCYTES # (AUTO) 0.5 X10'3 (1.1-4.8); LYMPHOCYTES % (AUTO) 6.1 % (21-51); MEAN CORPUSCULAR HEMOGLOBIN 33.2 PG (27.0-31.0); MEAN CORPUSCULAR HGB CONC 32.8 g/dL (33.0-36.5); MEAN CORPUSCULAR VOLUME 101.1 FL (78-98); MONOCYTES # (AUTO) 0.8 X10'3 (0-0.9); MONOCYTES % (AUTO) 10.6 % (2-12); NEUTROPHILS # (AUTO) 6.5 X10'3 (1.8-7.7); NEUTROPHILS % (AUTO) 82.4 % (42-75); PLATELET COUNT 207 X10'3 (140-440); RED BLOOD COUNT 3.39 X10'6 (4.70-6.10); RED CELL DISTRIBUTION WIDTH 16.1 % (11.5-14.5); WHITE BLOOD COUNT 7.9 X10'3 (4.5-11.0)
[2019-07-30] MEDS: FENTANYL-0.9 % NACL/PF 100 ML IV PRN (05:03)
[2019-07-30 05:10] LABS: ABG BASE EXCESS -9.9 mmol/L (-2.0-3.0); ABG HCO3 16.9 mmol/L (22.0-26.0); ABG PCO2 (T) 40.2 mmHg (35.0-45.0); ABG PH (T) 7.241 (7.350-7.450); ABG PO2 (T) 70.4 mmHg (83-108); ALLEN'S TEST Positive; FCOHb 0.1 % (0.5-1.5); FO2Hb 92.9 % (94-100); MINUTE VOLUME 9 L/min; PATIENT TEMPERATURE 36.8; PEEP 5 cm H2O; RESPIRATORY RATE 14 b/min; RESPIRATORY RATE (OBSERVED) 15 b/min; TIDAL VOLUME 550 mL; TOTAL HEMOGLOBIN 12.7 G/dl (14.0-17.9)
--- NOTE | 2019-07-30 05:34 | NUR ---
While checking for residuals on patient tube feed and then flushing free water, I noticed the tube feed and water coming back up and out the patient's mouth and nose. I pulled his NG and replaced it with an OG. The tube feed had been turned off and I will wait for CXR to confirm placement.
--- NOTE | 2019-07-30 06:20 | NUR ---
Problems reprioritized. Patient report given, questions answered & plan of care reviewed with DESMOND Waggoner.
[2019-07-30] MEDS: LORazepam 2 mg/ml vial IM PRN (07:41)
[2019-07-30] MEDS: K and/or MAG REPLACEMENT MC SCH (08:00)
[2019-07-30] MEDS: famotidine/PF 10 mg/ml inj IV SCH ×2 (08:00→21:11)
[2019-07-30] MEDS: nystatin 15 GM powder TP SCH ×2 (08:00→21:11)
[2019-07-30] MEDS: sodium chloride 0.45% 1,000 ML IV SCH ×2 (08:00→21:28)
[2019-07-30] MEDS: flecainide 50mg tablet NG SCH ×2 (10:56→21:11)
[2019-07-30] MEDS: lactobacillus rhamnosus 10,000 MMU CELLS/CAPSULE PO SCH ×2 (10:56→21:11)
[2019-07-30] MEDS: thiamine 100mg tablet NG SCH (10:56)
[2019-07-30] MEDS: folic acid 1mg tablet NG SCH (10:56)
[2019-07-30] MEDS: apixaban 5mg tablet PO SCH ×2 (10:56→21:11)
[2019-07-30 11:14] LABS: CLARITY,URINE CLOUDY (Clear); COLOR,URINE YELLOW (Yellow); GLUCOSE, URINE NEGATIVE (Neg); KETONES,URINE NEGATIVE (Neg); LEUKOCYTE ESTERASE ,URINE NEGATIVE (Neg); NITRITES, URINE NEGATIVE (Neg); OCCULT BLOOD,URINE LARGE (Neg); PH,URINE 5.5 (4.8-8.0); PROTEIN,URINE 30 mg/dl (Neg); UROBILINOGEN,URINE 0.2 E.U/dL (0.2-1.0)
[2019-07-30 11:16] LABS: UA COLLECTION TYPE FOLEY CATH
[2019-07-30 11:21] LABS: URIC ACID CRYSTALS 4+ /HPF (NEGATIVE)
[2019-07-30 11:23] LABS: SQUAMOUS EPITHELIAL CELL,UR NONE SEEN /LPF (FEW)
[2019-07-30 11:24] LABS: BACTERIA,URINE 2+ /HPF (Neg); RBC,URINE 50-100 /HPF (0-2)
--- NOTE | 2019-07-30 12:38 | NUR ---
Reassessment: Pt TF held formula coming out of nose and mouth last night per RN. S/p [place] to verify OG position and TF restarted at 20ml/hr currently tolerating. Relistor to start today as well per MD. LBM 07/26. May also require routine bowel care. Will monitor for TF tolerance. Rec: 1. OGTF per MD using Vital High Protein at 95ml/hr goal. to provide 2280ml fluid, 1915ml free water, 2280kcals, and 200g protein. Initiate at 20ml/hr and advance 20ml Q8 to goal as tolerated. 2. water flush 200ml Q4 3. prealbumin Q /; daily wts 4. thiamin/MVI/folic for etoh per MD 5. relistor per MD; consider routine bowel care as well per MD 6. weekly wts Addendum: 07/30/19 at [address] Amended: Links added.
[2019-07-30] MEDS ORDERED: VANCOMYCIN LEVEL IV ONE (13:30)
[2019-07-30] MEDS: MULTIVIT-MIN/FERROUS GLUCONATE 9 MG/15 ML LIQUID NG SCH (14:02)
[2019-07-30] MEDS: insulin regular, human vial - multi-dose SQ PRN ×2 (14:52→21:09)
--- NOTE | 2019-07-30 15:04 | NUR ---
Pharmacy called per Vanc trough of 19.0, pharmacist instructed this RN to continue to give scheduled dose of vancomycin.
--- NOTE | 2019-07-30 18:30 | NUR ---
Patient in room ICU 2043. I have received report from STEFANIE LOGAN and had the opportunity to ask questions and assume patient care.
[2019-07-30] MEDS: insulin glargine (Lantus) pen - multi-dose SQ SCH (21:10)
[2019-07-30] MEDS: atorvastatin 10mg tablet NG SCH (21:11)
[2019-07-31] VITALS (24 sets, daily range): BP systolic 107–183; BP diastolic 44–110
[2019-07-31] MEDS: ipratropium/albuterol 3ml nebule NEB SCH ×6 (02:25→23:15)
[2019-07-31] MEDS: mineral oil/petrolatum ophthal oint EACHEYE SCH ×4 (02:45→20:24)
[2019-07-31] MEDS: insulin regular, human vial - multi-dose SQ PRN ×4 (02:46→20:17)
[2019-07-31 02:56] LABS: BASOPHILS % (AUTO) 0.6 % (0-1); EOSINOPHILS # (AUTO) 0.1 X10'3 (0-0.9); EOSINOPHILS % (AUTO) 0.8 % (0-6); HEMATOCRIT 34.9 % (42.0-52.0); HEMOGLOBIN 11.6 g/dl (14.0-17.9); LYMPHOCYTES # (AUTO) 0.6 X10'3 (1.1-4.8); LYMPHOCYTES % (AUTO) 7.7 % (21-51); MEAN CORPUSCULAR HEMOGLOBIN 32.9 PG (27.0-31.0); MEAN CORPUSCULAR HGB CONC 33.2 g/dL (33.0-36.5); MEAN PLATELET VOLUME 8.2 FL (7.4-10.4); MONOCYTES # (AUTO) 0.8 X10'3 (0-0.9); MONOCYTES % (AUTO) 10.5 % (2-12); NEUTROPHILS # (AUTO) 6.1 X10'3 (1.8-7.7); NEUTROPHILS % (AUTO) 80.4 % (42-75); PLATELET COUNT 212 X10'3 (140-440); RED BLOOD COUNT 3.53 X10'6 (4.70-6.10); RED CELL DISTRIBUTION WIDTH 16.2 % (11.5-14.5); WHITE BLOOD COUNT 7.6 X10'3 (4.5-11.0)
[2019-07-31 03:12] LABS: PARTIAL THROMBOPLASTIN TIME 28 SECONDS (22-32)
[2019-07-31 03:18] LABS: ALANINE AMINOTRANSFERASE 18 U/L (12-78); ALBUMIN 1.8 G/DL (3.4-5.0); ALBUMIN/GLOBULIN RATIO 0.5 (1.1-1.5); ALKALINE PHOSPHATASE 88 IU/L (46-116); ANION GAP 11 (8-16); ASPARTATE AMINO TRANSFERASE 22 U/L (10-37); BILIRUBIN,TOTAL 0.4 MG/DL (0.1-1.0); BLOOD UREA NITROGEN 51 MG/DL (7-18); BUN/CREATININE RATIO 28.2 (5.4-32.0); CALCIUM 8.2 MG/DL (8.5-10.1); CHLORIDE 117 MMOL/L (99-107); CREATININE 1.81 MG/DL (0.60-1.10); GLUCOSE 207 MG/DL (70-104); LIPASE 105 U/L (73-393); MAGNESIUM 1.7 MG/DL (1.5-2.4); PHOSPHORUS 2.2 MG/DL (2.3-4.5); POTASSIUM 3.7 MMOL/L (3.5-5.1); SODIUM 149 MMOL/L (135-145); TOTAL CARBON DIOXIDE 21.1 MMOL/L (24-32); TOTAL PROTEIN 5.4 G/DL (6.4-8.2); eGFR 37 ML/MIN
[2019-07-31 04:05] LABS: ABG BASE EXCESS -6.7 mmol/L (-2.0-3.0); ABG HCO3 18.5 mmol/L (22.0-26.0); ABG OXYGEN SATURATION 91.5 % (95-98); ABG PCO2 (T) 35.6 mmHg (35.0-45.0); ABG PH (T) 7.333 (7.350-7.450); ABG PO2 (T) 59.2 mmHg (83-108); ALLEN'S TEST Positive; FMetHb 0.3 % (0.3-1.12); FO2Hb 91.2 % (94-100); MINUTE VOLUME 9 L/min; PATIENT TEMPERATURE 36.6; PEEP 5 cm H2O; RESPIRATORY RATE 14 b/min; RESPIRATORY RATE (OBSERVED) 14 b/min; TIDAL VOLUME 550 mL; TOTAL HEMOGLOBIN 11.6 G/dl (14.0-17.9)
--- NOTE | 2019-07-31 06:34 | NUR ---
Problems reprioritized. Patient report given, questions answered & plan of care reviewed with STEFANIE LOGAN.
[2019-07-31] MEDS: folic acid 1mg tablet NG SCH (07:48)
[2019-07-31] MEDS: lactobacillus rhamnosus 10,000 MMU CELLS/CAPSULE PO SCH ×2 (07:48→20:24)
[2019-07-31] MEDS: nystatin 15 GM powder TP SCH ×2 (07:48→20:24)
[2019-07-31] MEDS: famotidine/PF 10 mg/ml inj IV SCH ×2 (07:48→20:24)
[2019-07-31] MEDS: flecainide 50mg tablet NG SCH ×2 (07:49→20:24)
[2019-07-31] MEDS: MULTIVIT-MIN/FERROUS GLUCONATE 9 MG/15 ML LIQUID NG SCH (07:49)
[2019-07-31] MEDS: piperacillin/tazo 3.375gm/50ml 50 ML IV SCH ×3 (07:49→23:48)
[2019-07-31] MEDS: apixaban 5mg tablet PO SCH ×2 (07:49→20:24)
[2019-07-31] MEDS: thiamine 100mg tablet NG SCH (07:49)
[2019-07-31] MEDS: K and/or MAG REPLACEMENT MC SCH (08:00)
[2019-07-31] MEDS: FENTANYL-0.9 % NACL/PF 100 ML IV PRN (08:01)
[2019-07-31] MEDS ORDERED: furosemide 40mg/4ml inj IV ONE (09:15)
[2019-07-31 11:41] LABS: CLARITY,URINE CLOUDY (Clear); COLOR,URINE YELLOW (Yellow); GLUCOSE, URINE NEGATIVE (Neg); KETONES,URINE NEGATIVE (Neg); LEUKOCYTE ESTERASE ,URINE TRACE (Neg); NITRITES, URINE NEGATIVE (Neg); OCCULT BLOOD,URINE LARGE (Neg); PH,URINE 5.5 (4.8-8.0); PROTEIN,URINE NEGATIVE (Neg); UROBILINOGEN,URINE 0.2 E.U/dL (0.2-1.0)
[2019-07-31 11:44] LABS: UA COLLECTION TYPE FOLEY CATH
[2019-07-31 11:46] LABS: RBC,URINE TNTC /HPF (0-2); URIC ACID CRYSTALS 4+ /HPF (NEGATIVE)
[2019-07-31 11:47] LABS: BACTERIA,URINE 1+ /HPF (Neg)
[2019-07-31 11:53] LABS: COARSE GRANULAR CAST >30 /LPF (NEGATIVE); SQUAMOUS EPITHELIAL CELL,UR FEW /LPF (FEW)
[2019-07-31] MEDS: NORepinephrine 8mg/ 250ml NS 250 ML IV SCH (16:20)
--- NOTE | 2019-07-31 18:39 | NUR ---
assumed care from sg LOGAN no questions or concerns after assuming care
[2019-07-31] MEDS: midazolam 100mg in NS 100ml 100 ML IV PRN (18:47)
[2019-07-31] MEDS: insulin glargine (Lantus) pen - multi-dose SQ SCH (20:22)
[2019-07-31] MEDS: atorvastatin 10mg tablet NG SCH (20:24)
--- NOTE | 2019-07-31 21:39 | NUR ---
patient in bed covers on no purposeful movements have been observed at this time rr even un labored no observable s/s of acute stress at this time
[2019-08-01] VITALS (23 sets, daily range): BP systolic 105–193; BP diastolic 38–96
--- NOTE | 2019-08-01 00:24 | NUR ---
patient in bed covers on eyes closed rr even un labored no observable s/s of acute stress at this time will continue to monitor
[2019-08-01] MEDS: mineral oil/petrolatum ophthal oint EACHEYE SCH ×4 (02:15→20:11)
[2019-08-01 02:16] LABS: BASOPHILS % (AUTO) 0.6 % (0-1); EOSINOPHILS # (AUTO) 0.1 X10'3 (0-0.9); EOSINOPHILS % (AUTO) 0.9 % (0-6); HEMATOCRIT 33.3 % (42.0-52.0); HEMOGLOBIN 11.1 g/dl (14.0-17.9); LYMPHOCYTES # (AUTO) 0.5 X10'3 (1.1-4.8); LYMPHOCYTES % (AUTO) 7.4 % (21-51); MEAN CORPUSCULAR HEMOGLOBIN 32.7 PG (27.0-31.0); MEAN CORPUSCULAR HGB CONC 33.3 g/dL (33.0-36.5); MEAN CORPUSCULAR VOLUME 98.3 FL (78-98); MEAN PLATELET VOLUME 8.6 FL (7.4-10.4); MONOCYTES # (AUTO) 0.9 X10'3 (0-0.9); MONOCYTES % (AUTO) 12.7 % (2-12); NEUTROPHILS # (AUTO) 5.7 X10'3 (1.8-7.7); NEUTROPHILS % (AUTO) 78.4 % (42-75); PLATELET COUNT 221 X10'3 (140-440); RED BLOOD COUNT 3.39 X10'6 (4.70-6.10); RED CELL DISTRIBUTION WIDTH 15.9 % (11.5-14.5); WHITE BLOOD COUNT 7.3 X10'3 (4.5-11.0)
[2019-08-01] MEDS: insulin regular, human vial - multi-dose SQ PRN ×4 (02:20→20:49)
[2019-08-01 02:23] LABS: PARTIAL THROMBOPLASTIN TIME 28 SECONDS (22-32)
[2019-08-01 02:26] LABS: ALANINE AMINOTRANSFERASE 16 U/L (12-78); ALBUMIN 1.8 G/DL (3.4-5.0); ALBUMIN/GLOBULIN RATIO 0.5 (1.1-1.5); ALKALINE PHOSPHATASE 82 IU/L (46-116); ANION GAP 10 (8-16); ASPARTATE AMINO TRANSFERASE 27 U/L (10-37); BILIRUBIN,TOTAL 0.4 MG/DL (0.1-1.0); BLOOD UREA NITROGEN 38 MG/DL (7-18); BUN/CREATININE RATIO 25.7 (5.4-32.0); CALCIUM 8.5 MG/DL (8.5-10.1); CHLORIDE 116 MMOL/L (99-107); CREATININE 1.48 MG/DL (0.60-1.10); GLUCOSE 124 MG/DL (70-104); MAGNESIUM 1.5 MG/DL (1.5-2.4); PHOSPHORUS 1.9 MG/DL (2.3-4.5); POTASSIUM 3.1 MMOL/L (3.5-5.1); SODIUM 150 MMOL/L (135-145); TOTAL CARBON DIOXIDE 24.3 MMOL/L (24-32); TOTAL PROTEIN 5.2 G/DL (6.4-8.2); eGFR 46 ML/MIN
--- NOTE | 2019-08-01 02:38 | NUR ---
patient in bed eyes closed no observable s/s of acute stress at this time
[2019-08-01] MEDS ORDERED: magnesium 2GM in 50ml NS 50 ML IV PRN (02:50)
[2019-08-01] MEDS ORDERED: potassium CL 10mEq/100ml bag 100 ML IV PRN (02:50)
[2019-08-01] MEDS ORDERED: magnesium 4gm in 100ml NS 100 ML IV PRN (02:50)
[2019-08-01] MEDS ORDERED: potassium Cl 20 mEq SR tablet PO PRN (02:50)
[2019-08-01] MEDS: ipratropium/albuterol 3ml nebule NEB SCH ×6 (03:15→23:06)
[2019-08-01] MEDS: potassium Cl 20 mEq SR tablet PO PRN ×5 (03:24→20:21)
[2019-08-01 04:16] LABS: ABG BASE EXCESS -1.1 mmol/L (-2.0-3.0); ABG HCO3 23.6 mmol/L (22.0-26.0); ABG OXYGEN SATURATION 92.4 % (95-98); ABG PCO2 (T) 39.6 mmHg (35.0-45.0); ABG PH (T) 7.393 (7.350-7.450); ABG PO2 (T) 63.7 mmHg (83-108); FCOHb 0.6 % (0.5-1.5); FMetHb 0.3 % (0.3-1.12); FO2Hb 91.6 % (94-100); MINUTE VOLUME 11 L/min; PATIENT TEMPERATURE 37.2; PEEP 5 cm H2O; RESPIRATORY RATE 14 b/min; RESPIRATORY RATE (OBSERVED) 17 b/min; TIDAL VOLUME 550 mL; TOTAL HEMOGLOBIN 12.6 G/dl (14.0-17.9)
--- NOTE | 2019-08-01 04:32 | NUR ---
patient in bed covers on eyes closed rr even un labored no observable s/s of acute stress at this time
[2019-08-01] MEDS: FENTANYL-0.9 % NACL/PF 100 ML IV PRN (06:05)
--- NOTE | 2019-08-01 06:25 | NUR ---
SBAR to Marianne rn no questions or concerns after assuming care
--- NOTE | 2019-08-01 06:29 | NUR ---
Patient in room ICU 2043. I have received report from Collins and had the opportunity to ask questions and assume patient care.
[2019-08-01] MEDS: K and/or MAG REPLACEMENT MC SCH ×2 (08:00→08:53)
[2019-08-01] MEDS: piperacillin/tazo 3.375gm/50ml 50 ML IV SCH ×2 (08:49→15:37)
[2019-08-01] MEDS: nystatin 15 GM powder TP SCH ×2 (08:49→20:12)
[2019-08-01] MEDS: famotidine/PF 10 mg/ml inj IV SCH ×2 (08:49→20:11)
[2019-08-01] MEDS: flecainide 50mg tablet NG SCH ×2 (08:50→20:11)
[2019-08-01] MEDS: apixaban 5mg tablet PO SCH ×2 (08:50→20:13)
[2019-08-01] MEDS: folic acid 1mg tablet NG SCH (08:51)
[2019-08-01] MEDS: thiamine 100mg tablet NG SCH (08:51)
[2019-08-01] MEDS: lactobacillus rhamnosus 10,000 MMU CELLS/CAPSULE PO SCH ×2 (08:51→20:11)
[2019-08-01] MEDS: MULTIVIT-MIN/FERROUS GLUCONATE 9 MG/15 ML LIQUID NG SCH (08:52)
[2019-08-01] MEDS: furosemide 40mg/4ml inj IV SCH ×2 (09:37→15:37)
[2019-08-01] MEDS ORDERED: sodium phosphate inj. 15 MMOL in dextrose 5%-water 150 ML IV PRN (10:20)
[2019-08-01] MEDS ORDERED: Neutra Phos packet PO PRN (10:20)
[2019-08-01] MEDS ORDERED: sodium phosphate inj. 30 MMOL in dextrose 5%-water 250 ML IV PRN (10:20)
--- NOTE | 2019-08-01 11:28 | NUR ---
0700 decreased versed to 0 and fent to 25. Patient moving head a little, does not follow directions, pulls head away with oral care, pupils pin point but reactive. 0900- resumed versed at 2.5mg, bp trending up, md wants to resume lasix for diuresis and will not be extubating today 1000- Rounds completed. Right lung infiltrates, +fluid, lasix q8 ordered, start relistor for no BM x 6 days per charting. increase trickle feed to 40cc/hour, reassess tomorrow for goal rate. Replace PO4 as needed. Per radiology pulled ET tube back 1cm, now a size 8 at 26cm. Discussed patient's hot red great toe to the right. Daughter states ongoing fungal infection at this toe. Hot to touch, swollen, extends to bunion, reported to MD. ETCO2 placed.
--- NOTE | 2019-08-01 12:06 | NUR ---
Reassessment: Pt continues with TF at trickle of 20 mL/hr per MD request however trickle goal rate to increase to 40 mL/hr per MD at critical care rounds today. Pt has been tolerating trickle TF with low residuals 5-20 mL. Na 150 today, up from 149 yesterday, pt receiving 200 mL water flush Q4H, no adjustments at this time per MD. Pt to start on Lasix per MD. LBM 07/26, discussed recommendation for bowel care to MD at critical care rounds, pt to start receiving routine Relistor. Will continue to follow closely. Rec: 1. Trickle TF via OG tube using Vital High Protein at 40 mL/hr per MD. Once okay by MD, advance TF to goal rate of 95 mL/hr. Once at goal to provide 2280ml fluid, 1915ml free water, 2280kcals, and 200g protein. Initiate at 20ml/hr and advance 20ml Q8 to goal as tolerated. 2. water flush 200ml Q4 3. prealbumin Q /; daily wts 4. thiamin/MVI/folic for EtOH hx 5. Relistor per MD; consider routine bowel care as well per MD 6. weekly wts Addendum: 08/01/19 at [address] Amended: Links added.
[2019-08-01] MEDS: methylnaltrexone br 12mg/0.6ml inj***SubQ only SQ SCH (12:07)
[2019-08-01 15:12] LABS: MAGNESIUM 1.4 MG/DL (1.5-2.4); POTASSIUM 3.4 MMOL/L (3.5-5.1)
[2019-08-01] MEDS: midazolam 100mg in NS 100ml 100 ML IV PRN (15:43)
--- NOTE | 2019-08-01 18:15 | NUR ---
Patient in room ICU 2043. I have received report from Jeferson LOGAN and had the opportunity to ask questions and assume patient care. Pt received orally intubated #8.0 ETT @21cm teeth. ETT secure with anchorfast. Right bottom lip with area of concern. ETT moved to midline. Vent settings:A/C VC Fio2 30% TV 550 rate 14 +5PEEP. Lungs with coarse breath sounds/diminished. O2 [id number]%. Rhythm is afib HR 80/min. Radial pulses weak. pedal pulses palpable. Capillary refill is brisk to all nail beds. Edema is generalized. Scleral edema & genital edema noted. Right abdomen with dressing & old drainage. Panus with InterDry in place. Hawkins cath drains pale yellow urine post lasix. IV sedation Fentanyl & versed drips. Phos replacement & mag replacement in progress. PICC line right upper arm & is CVP is transduced reading 7-8 with good waveform. Right shoulder area with peripheral IV #20G, infusing is versed & fentanyl drips, line is patent with good blood return. Left upper chest area with #18G saline lock, good blood return & flushes well. OGT with trickle feeds Vital HP @ 40ml/hr. Safety precautions observed. Bilateral soft wrist restraints secure. Pt does lift arms & turns head from side to side. No distress at shift change.
--- NOTE | 2019-08-01 18:15 | NUR ---
Problems reprioritized. Patient report given, questions answered & plan of care reviewed with Carmen.
[2019-08-01] MEDS: insulin glargine (Lantus) pen - multi-dose SQ SCH (20:55)
[2019-08-02] VITALS (24 sets, daily range): BP systolic 92–179; BP diastolic 38–91
[2019-08-02] MEDS: potassium Cl 20 mEq SR tablet PO PRN (00:25)
[2019-08-02] MEDS: atorvastatin 10mg tablet NG SCH ×2 (00:25→20:56)
[2019-08-02] MEDS: furosemide 40mg/4ml inj IV SCH ×4 (00:26→16:55)
[2019-08-02] MEDS: piperacillin/tazo 3.375gm/50ml 50 ML IV SCH ×3 (00:26→15:54)
[2019-08-02] MEDS: FENTANYL-0.9 % NACL/PF 100 ML IV PRN ×2 (01:35→14:47)
[2019-08-02] MEDS: insulin regular, human vial - multi-dose SQ PRN ×3 (02:13→21:05)
[2019-08-02] MEDS: mineral oil/petrolatum ophthal oint EACHEYE SCH ×4 (02:13→20:57)
[2019-08-02] MEDS: ipratropium/albuterol 3ml nebule NEB SCH ×6 (03:02→23:08)
[2019-08-02 03:13] LABS: BASOPHILS % (AUTO) 0.2 % (0-1); EOSINOPHILS # (AUTO) 0.1 X10'3 (0-0.9); EOSINOPHILS % (AUTO) 0.8 % (0-6); HEMATOCRIT 30.5 % (42.0-52.0); LYMPHOCYTES # (AUTO) 0.6 X10'3 (1.1-4.8); LYMPHOCYTES % (AUTO) 9.2 % (21-51); MEAN CORPUSCULAR HEMOGLOBIN 32.2 PG (27.0-31.0); MEAN CORPUSCULAR HGB CONC 32.9 g/dL (33.0-36.5); MEAN PLATELET VOLUME 8.2 FL (7.4-10.4); MONOCYTES # (AUTO) 0.8 X10'3 (0-0.9); NEUTROPHILS # (AUTO) 5.3 X10'3 (1.8-7.7); NEUTROPHILS % (AUTO) 77.8 % (42-75); PARTIAL THROMBOPLASTIN TIME 31 SECONDS (22-32); PLATELET COUNT 217 X10'3 (140-440); RED BLOOD COUNT 3.11 X10'6 (4.70-6.10); RED CELL DISTRIBUTION WIDTH 15.5 % (11.5-14.5); WHITE BLOOD COUNT 6.8 X10'3 (4.5-11.0)
[2019-08-02 03:15] LABS: ABG BASE EXCESS 4.1 mmol/L (-2.0-3.0); ABG HCO3 28.6 mmol/L (22.0-26.0); ABG OXYGEN SATURATION 92.7 % (95-98); ABG PCO2 (T) 42.8 mmHg (35.0-45.0); ABG PH (T) 7.444 (7.350-7.450); ABG PO2 (T) 63.5 mmHg (83-108); ALLEN'S TEST Positive; FCOHb 0.1 % (0.5-1.5); FMetHb 0.3 % (0.3-1.12); FO2Hb 92.3 % (94-100); MINUTE VOLUME 6 L/min; PATIENT TEMPERATURE 37.1; PEEP 5 cm H2O; RESPIRATORY RATE 14 b/min; RESPIRATORY RATE (OBSERVED) 14 b/min; TIDAL VOLUME 550 mL; TOTAL HEMOGLOBIN 12.1 G/dl (14.0-17.9)
[2019-08-02 03:16] LABS: ALANINE AMINOTRANSFERASE 13 U/L (12-78); ALBUMIN 1.5 G/DL (3.4-5.0); ALBUMIN/GLOBULIN RATIO 0.4 (1.1-1.5); ALKALINE PHOSPHATASE 72 IU/L (46-116); ANION GAP 6 (8-16); ASPARTATE AMINO TRANSFERASE 21 U/L (10-37); BILIRUBIN,TOTAL 0.3 MG/DL (0.1-1.0); BLOOD UREA NITROGEN 28 MG/DL (7-18); BUN/CREATININE RATIO 21.2 (5.4-32.0); CALCIUM 7.8 MG/DL (8.5-10.1); CHLORIDE 112 MMOL/L (99-107); CREATININE 1.32 MG/DL (0.60-1.10); GLUCOSE 178 MG/DL (70-104); MAGNESIUM 1.6 MG/DL (1.5-2.4); PHOSPHORUS 2.2 MG/DL (2.3-4.5); POTASSIUM 3.2 MMOL/L (3.5-5.1); SODIUM 146 MMOL/L (135-145); TOTAL PROTEIN 5.1 G/DL (6.4-8.2); eGFR 53 ML/MIN
[2019-08-02] MEDS: potassium Cl 20mEq/100mL bag 100 ML IV PRN ×4 (03:30→09:25)
--- NOTE | 2019-08-02 04:00 | NUR ---
Pt desaturating 87-88%. Suctioned ETT with nil secretions. FIO2 up to 40%. Oxygen saturation now 96%
[2019-08-02] MEDS: midazolam 100mg in NS 100ml 100 ML IV PRN (06:04)
[2019-08-02] MEDS: K and/or MAG REPLACEMENT MC SCH ×2 (08:00)
[2019-08-02] MEDS: famotidine/PF 10 mg/ml inj IV SCH ×2 (08:03→20:56)
[2019-08-02] MEDS: MULTIVIT-MIN/FERROUS GLUCONATE 9 MG/15 ML LIQUID NG SCH (08:03)
[2019-08-02] MEDS: folic acid 1mg tablet NG SCH (08:04)
[2019-08-02] MEDS: apixaban 5mg tablet PO SCH ×2 (08:04→20:56)
[2019-08-02] MEDS: lactobacillus rhamnosus 10,000 MMU CELLS/CAPSULE PO SCH ×2 (08:04→20:56)
[2019-08-02] MEDS: thiamine 100mg tablet NG SCH (08:04)
[2019-08-02] MEDS: nystatin 15 GM powder TP SCH ×2 (08:05→20:56)
[2019-08-02] MEDS: flecainide 50mg tablet NG SCH ×2 (08:07→20:58)
[2019-08-02] MEDS ORDERED: potassium phosphate inj 30 MMOL in normal saline 500ml IV soln 490 ML IV ONE (08:50)
--- NOTE | 2019-08-02 11:00 | NUR ---
Pt. right arm more edematous than left arm, Dr. Rudolph notified. Pt. mental status w/ sedation weaned off still altered, not following commands although withdrawing in all four extremes, Dr. Rudolph notified. Pt. needing frequent potassium replacement per regular insulin per hyperglycemic protocol and scheduled lasix. Dr. Rudolph notified.
[2019-08-02 15:03] LABS: PHOSPHORUS 2.7 MG/DL (2.3-4.5); POTASSIUM 3.8 MMOL/L (3.5-5.1)
[2019-08-02] MEDS: NORepinephrine 8mg/ 250ml NS 250 ML IV SCH (16:20)
--- NOTE | 2019-08-02 16:28 | NUR ---
Pt.'s stated wanting to speak to MD about prognosis and plan of care. Family member stated has already spoken to RNs and wants to specifically speak with MD. Klaudia called and no answer received. interior assemblies installer notified. REY Blanca notified.
[2019-08-02] MEDS: insulin glargine (Lantus) pen - multi-dose SQ SCH (21:13)
[2019-08-02 22:43] LABS: ALANINE AMINOTRANSFERASE 15 U/L (12-78); ALBUMIN 1.8 G/DL (3.4-5.0); ALBUMIN/GLOBULIN RATIO 0.5 (1.1-1.5); ALKALINE PHOSPHATASE 79 IU/L (46-116); ANION GAP 4 (8-16); ASPARTATE AMINO TRANSFERASE 27 U/L (10-37); BILIRUBIN,TOTAL 0.4 MG/DL (0.1-1.0); BLOOD UREA NITROGEN 25 MG/DL (7-18); BUN/CREATININE RATIO 17.5 (5.4-32.0); CALCIUM 8.5 MG/DL (8.5-10.1); CHLORIDE 105 MMOL/L (99-107); CREATININE 1.43 MG/DL (0.60-1.10); GLUCOSE 182 MG/DL (70-104); MAGNESIUM 1.6 MG/DL (1.5-2.4); PHOSPHORUS 3.1 MG/DL (2.3-4.5); POTASSIUM 3.7 MMOL/L (3.5-5.1); SODIUM 143 MMOL/L (135-145); TOTAL CARBON DIOXIDE 33.6 MMOL/L (24-32); TOTAL PROTEIN 5.8 G/DL (6.4-8.2); eGFR 48 ML/MIN
[2019-08-03] VITALS (24 sets, daily range): BP systolic 94–184; BP diastolic 40–97
[2019-08-03] MEDS: piperacillin/tazo 3.375gm/50ml 50 ML IV SCH ×4 (00:02→23:43)
--- NOTE | 2019-08-03 00:05 | NUR ---
Lasix 40 mg IV held BP 94/51
--- NOTE | 2019-08-03 01:30 | NUR ---
CHG bath rendered/linen changed. Pt opens eyes, unable to track or follow commands. Moves head to right & left. GAG reflex is present. Gross movement of arms bilaterally, unable to grasp with hands. Withdraws right foot to nail bed pressure. Pupils @2mm with sluggish reaction to light. Small amount of brown liquid stool passed.
[2019-08-03] MEDS: insulin regular, human vial - multi-dose SQ PRN ×3 (02:21→20:19)
[2019-08-03] MEDS: mineral oil/petrolatum ophthal oint EACHEYE SCH ×4 (02:24→20:23)
[2019-08-03] MEDS: ipratropium/albuterol 3ml nebule NEB SCH ×6 (02:45→23:10)
[2019-08-03 03:05] LABS: BASOPHILS % (AUTO) 0.5 % (0-1); EOSINOPHILS # (AUTO) 0.1 X10'3 (0-0.9); HEMATOCRIT 37.3 % (42.0-52.0); HEMOGLOBIN 12.6 g/dl (14.0-17.9); LYMPHOCYTES # (AUTO) 1.1 X10'3 (1.1-4.8); LYMPHOCYTES % (AUTO) 12.3 % (21-51); MEAN CORPUSCULAR HEMOGLOBIN 32.6 PG (27.0-31.0); MEAN CORPUSCULAR HGB CONC 33.7 g/dL (33.0-36.5); MEAN CORPUSCULAR VOLUME 96.8 FL (78-98); MEAN PLATELET VOLUME 8.6 FL (7.4-10.4); NEUTROPHILS # (AUTO) 6.8 X10'3 (1.8-7.7); NEUTROPHILS % (AUTO) 75.2 % (42-75); PLATELET COUNT 320 X10'3 (140-440); RED BLOOD COUNT 3.86 X10'6 (4.70-6.10); RED CELL DISTRIBUTION WIDTH 15.6 % (11.5-14.5)
[2019-08-03 03:15] LABS: ABG BASE EXCESS 7.3 mmol/L (-2.0-3.0); ABG HCO3 31.8 mmol/L (22.0-26.0); ABG OXYGEN SATURATION 92.9 % (95-98); ABG PCO2 (T) 45.6 mmHg (35.0-45.0); ABG PH (T) 7.463 (7.350-7.450); ABG PO2 (T) 64.8 mmHg (83-108); ALLEN'S TEST Positive; FCOHb 0.3 % (0.5-1.5); FO2Hb 92.6 % (94-100); MINUTE VOLUME 8 L/min; PATIENT TEMPERATURE 37.5; PEEP 5 cm H2O; RESPIRATORY RATE 14 b/min; RESPIRATORY RATE (OBSERVED) 14 b/min; TIDAL VOLUME 550 mL; TOTAL HEMOGLOBIN 12.7 G/dl (14.0-17.9)
[2019-08-03 03:17] LABS: PARTIAL THROMBOPLASTIN TIME 32 SECONDS (22-32)
[2019-08-03 03:20] LABS: ALANINE AMINOTRANSFERASE 16 U/L (12-78); ALBUMIN 1.9 G/DL (3.4-5.0); ALBUMIN/GLOBULIN RATIO 0.4 (1.1-1.5); ALKALINE PHOSPHATASE 81 IU/L (46-116); ANION GAP 3 (8-16); ASPARTATE AMINO TRANSFERASE 32 U/L (10-37); BILIRUBIN,TOTAL 0.4 MG/DL (0.1-1.0); BLOOD UREA NITROGEN 26 MG/DL (7-18); BUN/CREATININE RATIO 18.2 (5.4-32.0); CALCIUM 8.7 MG/DL (8.5-10.1); CHLORIDE 104 MMOL/L (99-107); CREATININE 1.43 MG/DL (0.60-1.10); GLUCOSE 115 MG/DL (70-104); MAGNESIUM 1.6 MG/DL (1.5-2.4); PHOSPHORUS 3.5 MG/DL (2.3-4.5); POTASSIUM 3.7 MMOL/L (3.5-5.1); SODIUM 141 MMOL/L (135-145); TOTAL CARBON DIOXIDE 34.3 MMOL/L (24-32); TOTAL PROTEIN 6.4 G/DL (6.4-8.2); eGFR 48 ML/MIN
[2019-08-03] MEDS: midazolam 100mg in NS 100ml 100 ML IV PRN (03:48)
[2019-08-03] MEDS: FENTANYL-0.9 % NACL/PF 100 ML IV PRN ×2 (06:10→19:08)
--- NOTE | 2019-08-03 06:35 | NUR ---
Problems reprioritized. Patient report given, questions answered & plan of care reviewed with Talat LOGAN.
[2019-08-03] MEDS: K and/or MAG REPLACEMENT MC SCH ×2 (08:00)
[2019-08-03] MEDS ORDERED: methylnaltrexone br 12mg/0.6ml inj***SubQ only SQ SCH (08:00)
[2019-08-03] MEDS: famotidine/PF 10 mg/ml inj IV SCH ×2 (08:05→20:26)
[2019-08-03] MEDS: methylnaltrexone br 12mg/0.6ml inj***SubQ only SQ SCH (08:05)
[2019-08-03] MEDS: furosemide 40mg/4ml inj IV SCH ×3 (08:05→16:23)
[2019-08-03] MEDS: lactobacillus rhamnosus 10,000 MMU CELLS/CAPSULE PO SCH ×2 (08:10→20:26)
[2019-08-03] MEDS: MULTIVIT-MIN/FERROUS GLUCONATE 9 MG/15 ML LIQUID NG SCH (08:10)
[2019-08-03] MEDS: folic acid 1mg tablet NG SCH (08:10)
[2019-08-03] MEDS: apixaban 5mg tablet PO SCH ×2 (08:11→20:26)
[2019-08-03] MEDS: flecainide 50mg tablet NG SCH ×2 (08:11→20:26)
[2019-08-03] MEDS: thiamine 100mg tablet NG SCH (08:12)
--- NOTE | 2019-08-03 10:43 | NUR ---
Alexander trigger: Alexander 12; sushilaus red but skin intact. Addendum: 08/03/19 at [address] Amended: Links added.
[2019-08-03] MEDS: nystatin 15 GM powder TP SCH ×2 (14:02→20:23)
--- NOTE | 2019-08-03 18:13 | NUR ---
Problems reprioritized. Patient report given, questions answered & plan of care reviewed with DESMOND Lopez.
--- NOTE | 2019-08-03 18:13 | NUR ---
Patient in room ICU 2043. I have received report from Talat LOGAN and had the opportunity to ask questions and assume patient care. Pt received orally intubated #8.0 ETT anchored with anchofast. Oxygen saturation 95% on 40% FIO2. ETT is @26cm gum line. OGT is taped securely to ETT. Enteric feedings of Vital HP @ 80ml/hr. Pt is sedated on fentanyl & versed drips. PICC line to right upper arm is patent. Rhythm is AFIB HR 89. Hawkins cath drains pale yellow urine. Safety precautions observed HOB elevated 30 degrees, bilateral soft wrist restraints secure. No distress at this time.
[2019-08-03] MEDS: insulin glargine (Lantus) pen - multi-dose SQ SCH (20:22)
[2019-08-03] MEDS: atorvastatin 10mg tablet NG SCH (20:26)
--- NOTE | 2019-08-03 21:00 | NUR ---
CHG bath rendered. Linen/gown changed.Pt had small bowel movement. Soft brown stool.
[2019-08-04] VITALS (24 sets, daily range): BP systolic 104–177; BP diastolic 48–90
[2019-08-04 00:38] LABS: BASOPHILS # (AUTO) 0.1 X10'3 (0-0.2); BASOPHILS % (AUTO) 0.7 % (0-1); EOSINOPHILS # (AUTO) 0.1 X10'3 (0-0.9); EOSINOPHILS % (AUTO) 0.9 % (0-6); HEMATOCRIT 36.6 % (42.0-52.0); HEMOGLOBIN 12.3 g/dl (14.0-17.9); LYMPHOCYTES # (AUTO) 1.1 X10'3 (1.1-4.8); LYMPHOCYTES % (AUTO) 12.8 % (21-51); MEAN CORPUSCULAR HEMOGLOBIN 32.5 PG (27.0-31.0); MEAN CORPUSCULAR HGB CONC 33.7 g/dL (33.0-36.5); MEAN CORPUSCULAR VOLUME 96.6 FL (78-98); MEAN PLATELET VOLUME 8.3 FL (7.4-10.4); MONOCYTES # (AUTO) 0.9 X10'3 (0-0.9); MONOCYTES % (AUTO) 9.8 % (2-12); NEUTROPHILS # (AUTO) 6.7 X10'3 (1.8-7.7); NEUTROPHILS % (AUTO) 75.8 % (42-75); PLATELET COUNT 351 X10'3 (140-440); RED BLOOD COUNT 3.79 X10'6 (4.70-6.10); RED CELL DISTRIBUTION WIDTH 15.7 % (11.5-14.5); WHITE BLOOD COUNT 8.8 X10'3 (4.5-11.0)
[2019-08-04 00:50] LABS: ALANINE AMINOTRANSFERASE 18 U/L (12-78); ALBUMIN 1.9 G/DL (3.4-5.0); ALBUMIN/GLOBULIN RATIO 0.4 (1.1-1.5); ALKALINE PHOSPHATASE 81 IU/L (46-116); ANION GAP 3 (8-16); ASPARTATE AMINO TRANSFERASE 41 U/L (10-37); BILIRUBIN,TOTAL 0.4 MG/DL (0.1-1.0); BLOOD UREA NITROGEN 29 MG/DL (7-18); BUN/CREATININE RATIO 19.6 (5.4-32.0); CALCIUM 8.8 MG/DL (8.5-10.1); CHLORIDE 100 MMOL/L (99-107); CREATININE 1.48 MG/DL (0.60-1.10); GLUCOSE 148 MG/DL (70-104); MAGNESIUM 1.5 MG/DL (1.5-2.4); PHOSPHORUS 3.3 MG/DL (2.3-4.5); POTASSIUM 3.7 MMOL/L (3.5-5.1); PREALBUMIN 11.1 MG/DL (19-36); SODIUM 139 MMOL/L (135-145); TOTAL CARBON DIOXIDE 36.5 MMOL/L (24-32); TOTAL PROTEIN 6.2 G/DL (6.4-8.2); eGFR 46 ML/MIN
[2019-08-04 00:55] LABS: PARTIAL THROMBOPLASTIN TIME 33 SECONDS (22-32)
[2019-08-04] MEDS: furosemide 40mg/4ml inj IV SCH ×3 (01:39→16:00)
[2019-08-04] MEDS: mineral oil/petrolatum ophthal oint EACHEYE SCH ×4 (01:51→19:55)
[2019-08-04] MEDS: insulin regular, human vial - multi-dose SQ PRN ×4 (02:21→19:38)
[2019-08-04] MEDS: ipratropium/albuterol 3ml nebule NEB SCH ×6 (03:07→22:53)
[2019-08-04 03:20] LABS: ABG BASE EXCESS 9.5 mmol/L (-2.0-3.0); ABG HCO3 34.2 mmol/L (22.0-26.0); ABG PCO2 (T) 47.3 mmHg (35.0-45.0); ABG PH (T) 7.479 (7.350-7.450); ABG PO2 (T) 76.5 mmHg (83-108); ALLEN'S TEST Positive; FCOHb 0.2 % (0.5-1.5); FMetHb 0.3 % (0.3-1.12); FO2Hb 94.5 % (94-100); MINUTE VOLUME 9 L/min; PATIENT TEMPERATURE 37.6; PEEP 5 cm H2O; RESPIRATORY RATE 14 b/min; RESPIRATORY RATE (OBSERVED) 14 b/min; TIDAL VOLUME 550 mL; TOTAL HEMOGLOBIN 13.4 G/dl (14.0-17.9)
--- NOTE | 2019-08-04 06:15 | NUR ---
Problems reprioritized. Patient report given, questions answered & plan of care reviewed with Talat LOGAN.
--- NOTE | 2019-08-04 06:30 | NUR ---
Patient in room ICU 2043. I have received report from Carmen LOGAN and had the opportunity to ask questions and assume patient care.
--- NOTE | 2019-08-04 06:30 | NUR ---
Patient in room ICU 2043. I have received report from DESMOND Morales and had the opportunity to ask questions and assume patient care.
[2019-08-04] MEDS: K and/or MAG REPLACEMENT MC SCH (08:00)
[2019-08-04] MEDS: famotidine/PF 10 mg/ml inj IV SCH ×2 (08:39→20:05)
[2019-08-04] MEDS: lactobacillus rhamnosus 10,000 MMU CELLS/CAPSULE PO SCH ×2 (08:53→19:59)
[2019-08-04] MEDS: flecainide 50mg tablet NG SCH ×2 (08:53→19:59)
[2019-08-04] MEDS: apixaban 5mg tablet PO SCH (08:53)
[2019-08-04] MEDS: folic acid 1mg tablet NG SCH (08:53)
[2019-08-04] MEDS: MULTIVIT-MIN/FERROUS GLUCONATE 9 MG/15 ML LIQUID NG SCH (08:53)
[2019-08-04] MEDS: thiamine 100mg tablet NG SCH (08:54)
[2019-08-04] MEDS: piperacillin/tazo 3.375gm/50ml 50 ML IV SCH ×2 (08:54→16:32)
[2019-08-04] MEDS: nystatin 15 GM powder TP SCH ×2 (08:56→19:55)
--- NOTE | 2019-08-04 09:19 | NUR ---
Patient's right arm 4 cm above elbow is 46 cm, left arm is 42 cm. Will continue to monitor.
[2019-08-04] MEDS ORDERED: predniSONE 20 mg tablet PO SCH (10:00)
[2019-08-04] MEDS ORDERED: dextrose ORAL solution 15 GM/59 ML bottle OGT PRN ×2 (11:25)
[2019-08-04] MEDS ORDERED: Neutra Phos packet OGT PRN (11:26)
[2019-08-04] MEDS ORDERED: potassium Cl 20 mEq SR tablet OGT PRN ×2 (11:29→11:33)
[2019-08-04] MEDS ORDERED: HYDR12.5 PO (11:41)
[2019-08-04] MEDS: midazolam 100mg in NS 100ml 100 ML IV PRN (12:16)
[2019-08-04] MEDS: FENTANYL-0.9 % NACL/PF 100 ML IV PRN (12:17)
--- NOTE | 2019-08-04 16:54 | NUR ---
Patient's blood pressure is decreased to 79/34, fentanyl and versed held, notified Dr. Caban who states okay to hold lasix at this time. Will continue to monitor.
--- NOTE | 2019-08-04 18:03 | NUR ---
Dr. Pulliam rounded and stated daily dressing changes to midline. Removed lightly moist kerlix from wound bed. Placed wet Kerlix to wound bed, 4x4 gauze and covered with bordered gauze. Will continue to monitor.
--- NOTE | 2019-08-04 18:19 | NUR ---
Problems reprioritized. Patient report given, questions answered & plan of care reviewed with Carmen LOGAN.
--- NOTE | 2019-08-04 18:23 | NUR ---
Problems reprioritized. Patient report given, questions answered & plan of care reviewed with DESMOND Lopez.
--- NOTE | 2019-08-04 18:23 | NUR ---
Patient in room ICU 2043. I have received report and had the opportunity to ask questions and assume patient care. Patient received orally intubated #8.0 ETT @26cm gumline. Pt is on AC VC mode 40% FIO2 +5 PEEP observed TV is 646 oxygen saturation is 97%. ETT is secure with anchorfast. Pt is sedated & on fentanyl drip. Arouses to oral care opening eyes, unable to follow commands. Rhythm is sinus with PAC's. Rate is 98-106. PICC line to right upper arm is transduced CVP is 7. Carrillo port is occluded. Zosyn is currently infusing. OGT is taped securely to ETT. Enteric feedings Vital HP @ 95ml/hr. Hawkins cath drains pale yellow urine. Safety precautions observed. Bilateral soft wrist restraints are secure. Midline abdominal dressing is clean/dry & intact.
[2019-08-04 19:08] LABS: ALBUMIN 1.9 G/DL (3.4-5.0); ANION GAP 4 (8-16); BLOOD UREA NITROGEN 40 MG/DL (7-18); BUN/CREATININE RATIO 23.4 (5.4-32.0); CALCIUM 8.8 MG/DL (8.5-10.1); CHLORIDE 98 MMOL/L (99-107); CREATININE 1.71 MG/DL (0.60-1.10); GLUCOSE 256 MG/DL (70-104); POTASSIUM 3.8 MMOL/L (3.5-5.1); SODIUM 137 MMOL/L (135-145); TOTAL CARBON DIOXIDE 35.4 MMOL/L (24-32); eGFR 39 ML/MIN
[2019-08-04] MEDS: insulin glargine (Lantus) pen - multi-dose SQ SCH (19:44)
[2019-08-04] MEDS: colchicine 0.6mg tablet OGT SCH (19:59)
[2019-08-04] MEDS: apixaban 5mg tablet OGT SCH (19:59)
[2019-08-04] MEDS: atorvastatin 10mg tablet NG SCH (21:00)
[2019-08-05] VITALS (28 sets, daily range): BP systolic 69–195; BP diastolic 33–103
[2019-08-05] MEDS: furosemide 40mg/4ml inj IV SCH ×3 (00:07→15:53)
[2019-08-05] MEDS: piperacillin/tazo 3.375gm/50ml 50 ML IV SCH ×3 (00:07→16:02)
[2019-08-05] MEDS: FENTANYL-0.9 % NACL/PF 100 ML IV PRN ×2 (00:49→12:25)
--- NOTE | 2019-08-05 02:00 | NUR ---
PICC line is positional, unable to draw labs. CHG bath rendered at this time. Complete linen changed. Pt is wakeful & agitated at times moving head right & left, attempting to sit up. Bowels moved, small amount of soft brown stool passed.
[2019-08-05 02:52] LABS: BASOPHILS % (AUTO) 0.3 % (0-1); EOSINOPHILS % (AUTO) 0 % (0-6); HEMATOCRIT 35.9 % (42.0-52.0); HEMOGLOBIN 11.9 g/dl (14.0-17.9); LYMPHOCYTES # (AUTO) 0.5 X10'3 (1.1-4.8); LYMPHOCYTES % (AUTO) 4.3 % (21-51); MEAN CORPUSCULAR HEMOGLOBIN 32.3 PG (27.0-31.0); MEAN CORPUSCULAR HGB CONC 33.1 g/dL (33.0-36.5); MEAN CORPUSCULAR VOLUME 97.4 FL (78-98); MEAN PLATELET VOLUME 8.6 FL (7.4-10.4); MONOCYTES # (AUTO) 0.5 X10'3 (0-0.9); MONOCYTES % (AUTO) 5.2 % (2-12); NEUTROPHILS # (AUTO) 9.4 X10'3 (1.8-7.7); NEUTROPHILS % (AUTO) 90.2 % (42-75); PLATELET COUNT 378 X10'3 (140-440); RED BLOOD COUNT 3.68 X10'6 (4.70-6.10); RED CELL DISTRIBUTION WIDTH 15.3 % (11.5-14.5); WHITE BLOOD COUNT 10.4 X10'3 (4.5-11.0)
[2019-08-05 02:53] LABS: PARTIAL THROMBOPLASTIN TIME 32 SECONDS (22-32)
[2019-08-05 02:55] LABS: ALANINE AMINOTRANSFERASE 19 U/L (12-78); ALBUMIN 1.9 G/DL (3.4-5.0); ALBUMIN/GLOBULIN RATIO 0.5 (1.1-1.5); ALKALINE PHOSPHATASE 77 IU/L (46-116); ANION GAP 4 (8-16); ASPARTATE AMINO TRANSFERASE 43 U/L (10-37); BILIRUBIN,TOTAL 0.3 MG/DL (0.1-1.0); BLOOD UREA NITROGEN 44 MG/DL (7-18); CALCIUM 8.9 MG/DL (8.5-10.1); CHLORIDE 98 MMOL/L (99-107); CREATININE 1.76 MG/DL (0.60-1.10); GLUCOSE 314 MG/DL (70-104); MAGNESIUM 1.7 MG/DL (1.5-2.4); PHOSPHORUS 3.4 MG/DL (2.3-4.5); POTASSIUM 3.9 MMOL/L (3.5-5.1); SODIUM 136 MMOL/L (135-145); TOTAL CARBON DIOXIDE 33.8 MMOL/L (24-32); TOTAL PROTEIN 6.1 G/DL (6.4-8.2); eGFR 38 ML/MIN
[2019-08-05] MEDS: ipratropium/albuterol 3ml nebule NEB SCH ×6 (03:08→23:05)
[2019-08-05 03:21] LABS: ABG BASE EXCESS 8.4 mmol/L (-2.0-3.0); ABG HCO3 33.1 mmol/L (22.0-26.0); ABG PCO2 (T) 45.6 mmHg (35.0-45.0); ABG PH (T) 7.478 (7.350-7.450); ABG PO2 (T) 69.2 mmHg (83-108); ALLEN'S TEST Positive; FCOHb 0.2 % (0.5-1.5); FO2Hb 93.8 % (94-100); MINUTE VOLUME 10 L/min; PATIENT TEMPERATURE 36.8; PEEP 5 cm H2O; RESPIRATORY RATE 14 b/min; RESPIRATORY RATE (OBSERVED) 16 b/min; TIDAL VOLUME 550 mL; TOTAL HEMOGLOBIN 13.7 G/dl (14.0-17.9)
[2019-08-05] MEDS: mineral oil/petrolatum ophthal oint EACHEYE SCH ×4 (03:42→19:15)
--- NOTE | 2019-08-05 04:23 | NUR ---
Rhythm is sinus arrhythmia with PAC's. HR 75 BPM. P wave is notched.
--- NOTE | 2019-08-05 04:40 | NUR ---
BP 60/28 NS fluid bolus started pr Dale. Sedation is off.
--- NOTE | 2019-08-05 04:50 | NUR ---
BP 97/40 Rhythm is sinus arrhythmia with PAC's. HR 75.
--- NOTE | 2019-08-05 06:23 | NUR ---
Problems reprioritized. Patient report given, questions answered & plan of care reviewed with Sade LOGAN.
[2019-08-05] MEDS: normal saline 1000ml 1,000 ML IV SCH ×2 (06:25→08:09)
[2019-08-05] MEDS ORDERED: normal saline 250ml IV soln 250 ML IV ONE (06:25)
--- NOTE | 2019-08-05 06:25 | NUR ---
Problems reprioritized. Patient report given, questions answered & plan of care reviewed with Sade LOGAN.
--- NOTE | 2019-08-05 06:25 | NUR ---
Patient in room ICU 2043. I have received report from Carmen LOGAN and had the opportunity to ask questions and assume patient care.
[2019-08-05] MEDS: folic acid 1mg tablet NG SCH (07:34)
[2019-08-05] MEDS: predniSONE 20 mg tablet OGT SCH (07:34)
[2019-08-05] MEDS: MULTIVIT-MIN/FERROUS GLUCONATE 9 MG/15 ML LIQUID NG SCH (07:35)
[2019-08-05] MEDS: lactobacillus rhamnosus 10,000 MMU CELLS/CAPSULE PO SCH ×2 (07:36→19:15)
[2019-08-05] MEDS: methylnaltrexone br 12mg/0.6ml inj***SubQ only SQ SCH (07:36)
[2019-08-05] MEDS: colchicine 0.6mg tablet OGT SCH ×2 (07:36→19:16)
[2019-08-05] MEDS: apixaban 5mg tablet OGT SCH ×2 (07:36→19:16)
[2019-08-05] MEDS: famotidine/PF 10 mg/ml inj IV SCH ×2 (07:42→19:16)
[2019-08-05] MEDS: K and/or MAG REPLACEMENT MC SCH (08:00)
[2019-08-05] MEDS: thiamine 100mg tablet NG SCH (08:00)
[2019-08-05] MEDS: flecainide 50mg tablet NG SCH ×2 (08:03→19:16)
--- NOTE | 2019-08-05 08:04 | NUR ---
Thiamin med did not scan, but was given.
[2019-08-05] MEDS: nystatin 15 GM powder TP SCH ×2 (08:06→19:15)
[2019-08-05] MEDS: insulin regular, human vial - multi-dose SQ PRN ×3 (08:17→19:50)
--- NOTE | 2019-08-05 10:29 | NUR ---
Rounding complete. Dr. Caban wants to hold Lasix as pt BP does not tolerate it well.
--- NOTE | 2019-08-05 13:43 | NUR ---
Tube feeding container and tubing changed.
--- NOTE | 2019-08-05 18:07 | NUR ---
Patient in room ICU 2043. I have received report from Sade LOGAN and had the opportunity to ask questions and assume patient care.
--- NOTE | 2019-08-05 18:07 | NUR ---
Problems reprioritized. Patient report given, questions answered & plan of care reviewed with Carmen LOGAN.
[2019-08-05] MEDS: insulin glargine (Lantus) pen - multi-dose SQ SCH (19:48)
--- NOTE | 2019-08-05 21:00 | NUR ---
Bowels moved. Small soft brown stool passed.
[2019-08-05] MEDS: atorvastatin 10mg tablet NG SCH (21:34)
[2019-08-05] MEDS ORDERED: NORepinephrine 8mg/ 250ml NS 250 ML IV PRN (23:20)
[2019-08-06] VITALS (23 sets, daily range): BP systolic 80–170; BP diastolic 34–84
[2019-08-06] MEDS: piperacillin/tazo 3.375gm/50ml 50 ML IV SCH ×3 (00:31→16:22)
[2019-08-06] MEDS: mineral oil/petrolatum ophthal oint EACHEYE SCH ×4 (01:45→20:00)
[2019-08-06] MEDS: insulin regular, human vial - multi-dose SQ PRN ×4 (02:09→20:19)
[2019-08-06] MEDS: ipratropium/albuterol 3ml nebule NEB SCH ×6 (03:02→23:15)
[2019-08-06 03:15] LABS: ABG BASE EXCESS 12.4 mmol/L (-2.0-3.0); ABG HCO3 37.3 mmol/L (22.0-26.0); ABG OXYGEN SATURATION 92.9 % (95-98); ABG PCO2 (T) 47.5 mmHg (35.0-45.0); ABG PH (T) 7.511 (7.350-7.450); ABG PO2 (T) 63.1 mmHg (83-108); ALLEN'S TEST Positive; FCOHb 0.1 % (0.5-1.5); FMetHb 0.3 % (0.3-1.12); FO2Hb 92.5 % (94-100); MINUTE VOLUME 9 L/min; PATIENT TEMPERATURE 36.5; PEEP 5 cm H2O; RESPIRATORY RATE 14 b/min; RESPIRATORY RATE (OBSERVED) 14 b/min; TIDAL VOLUME 550 mL; TOTAL HEMOGLOBIN 13.3 G/dl (14.0-17.9)
[2019-08-06] MEDS: FENTANYL-0.9 % NACL/PF 100 ML IV PRN (04:41)
[2019-08-06] MEDS: midazolam 100mg in NS 100ml 100 ML IV PRN (04:42)
--- NOTE | 2019-08-06 05:00 | NUR ---
BP stable at this time. Levophed utilized for a brief time during the night when BP dropped 65-77 systolic. 2400 lasix held, sedation off during episode of low BP. Pt positioned flat & tube feedings off when BP was low. BS at 0150 was 74 and insulin adjusted accordingly for nutritional coverage changed to level 4. Pt is tolerating tube feedings with zero residuals & is passing small soft brown stools. Vital HP feedings are at goal rate 95ml/hr. Pt is more alert and moving arms & legs purposefully.
--- NOTE | 2019-08-06 06:20 | NUR ---
Problems reprioritized. Patient report given, questions answered & plan of care reviewed with Sade LOGAN.
--- NOTE | 2019-08-06 06:30 | NUR ---
Patient in room ICU 2043. I have received report from Carmen LOGAN and had the opportunity to ask questions and assume patient care.
[2019-08-06] MEDS: furosemide 40mg/4ml inj IV SCH ×3 (06:48→14:46)
[2019-08-06 07:13] LABS: BASOPHILS % (AUTO) 0.2 % (0-1); EOSINOPHILS # (AUTO) 0.1 X10'3 (0-0.9); EOSINOPHILS % (AUTO) 0.5 % (0-6); HEMATOCRIT 35.9 % (42.0-52.0); HEMOGLOBIN 12.1 g/dl (14.0-17.9); LYMPHOCYTES # (AUTO) 1.3 X10'3 (1.1-4.8); LYMPHOCYTES % (AUTO) 10.7 % (21-51); MEAN CORPUSCULAR HEMOGLOBIN 32.5 PG (27.0-31.0); MEAN CORPUSCULAR HGB CONC 33.7 g/dL (33.0-36.5); MEAN CORPUSCULAR VOLUME 96.5 FL (78-98); NEUTROPHILS % (AUTO) 80.6 % (42-75); PLATELET COUNT 451 X10'3 (140-440); RED BLOOD COUNT 3.72 X10'6 (4.70-6.10); RED CELL DISTRIBUTION WIDTH 15.5 % (11.5-14.5); WHITE BLOOD COUNT 12.4 X10'3 (4.5-11.0)
[2019-08-06 07:25] LABS: ALANINE AMINOTRANSFERASE 23 U/L (12-78); ALBUMIN 2.2 G/DL (3.4-5.0); ALBUMIN/GLOBULIN RATIO 0.5 (1.1-1.5); ALKALINE PHOSPHATASE 77 IU/L (46-116); ANION GAP 7 (8-16); ASPARTATE AMINO TRANSFERASE 43 U/L (10-37); BILIRUBIN,TOTAL 0.3 MG/DL (0.1-1.0); BLOOD UREA NITROGEN 47 MG/DL (7-18); BUN/CREATININE RATIO 28.5 (5.4-32.0); CALCIUM 8.9 MG/DL (8.5-10.1); CHLORIDE 100 MMOL/L (99-107); CREATININE 1.65 MG/DL (0.60-1.10); GLUCOSE 135 MG/DL (70-104); MAGNESIUM 1.8 MG/DL (1.5-2.4); PHOSPHORUS 3.1 MG/DL (2.3-4.5); SODIUM 143 MMOL/L (135-145); TOTAL CARBON DIOXIDE 36.3 MMOL/L (24-32); TOTAL PROTEIN 6.6 G/DL (6.4-8.2); eGFR 41 ML/MIN
[2019-08-06] MEDS: folic acid 1mg tablet NG SCH (07:28)
[2019-08-06] MEDS: colchicine 0.6mg tablet OGT SCH ×2 (07:28→20:05)
[2019-08-06] MEDS: flecainide 50mg tablet NG SCH ×2 (07:29→20:03)
[2019-08-06] MEDS: apixaban 5mg tablet OGT SCH ×2 (07:30→20:03)
[2019-08-06] MEDS: predniSONE 20 mg tablet OGT SCH (07:30)
[2019-08-06] MEDS: thiamine 100mg tablet NG SCH (07:31)
[2019-08-06] MEDS: MULTIVIT-MIN/FERROUS GLUCONATE 9 MG/15 ML LIQUID NG SCH (07:32)
[2019-08-06] MEDS: famotidine/PF 10 mg/ml inj IV SCH ×2 (07:32→20:04)
[2019-08-06] MEDS: lactobacillus rhamnosus 10,000 MMU CELLS/CAPSULE PO SCH ×2 (07:35→20:04)
[2019-08-06] MEDS: potassium Cl 20mEq/100mL bag 100 ML IV PRN ×4 (07:35→11:44)
[2019-08-06] MEDS: nystatin 15 GM powder TP SCH ×2 (07:35→20:04)
[2019-08-06] MEDS: K and/or MAG REPLACEMENT MC SCH (07:59)
[2019-08-06] MEDS: dexmedetomidin/NS 400mcg/100ml 100 ML IV SCH ×2 (09:21→16:51)
[2019-08-06] MEDS ORDERED: albumin (human) 25% 100 ML IV solution IV ONE (11:05)
--- NOTE | 2019-08-06 12:05 | NUR ---
F/U: Pt is not awake per MD noted. Pt is off vasopressor. Per MD holds the Lasix this am. Pt is tolerating TF well. Per MD will perform tracheostomy if the pt does not improve on Sunday. LBM 08/03. Will continue to monitor. Alexander trigger: Alexander 12; pannus red but skin intact. Reassessment: Pt continues with TF at trickle of 20 mL/hr per MD request however trickle goal rate to increase to 40 mL/hr per MD at critical care rounds today. Pt has been tolerating trickle TF with low residuals 5-20 mL. Na 150 today, up from 149 yesterday, pt receiving 200 mL water flush Q4H, no adjustments at this time per MD. Pt to start on Lasix per MD. LBM 07/26, discussed recommendation for bowel care to MD at critical care rounds, pt to start receiving routine Relistor. Will continue to follow closely. Rec: 1. Continue TF via OG tube using Vital High Protein at 95 mL/hr per MD;to provide 2280ml fluid, 1915ml free water, 2280kcals, and 200g protein. Initiate at 20ml/hr and advance 20ml Q8 to goal as tolerated. 2. water flush 200ml Q4 3. prealbumin Q ; daily wts 4. daily wts Addendum: 08/06/19 at [address] Amended: Links added. Addendum: 08/06/19 at [address] MATHEW Weir
--- NOTE | 2019-08-06 16:40 | NUR ---
Patient to receive 42 units due to protocol and Blood sugar of 379. However, patient did not tolerate 43 units last night, blood sugar dropped below 70s. Provided 40 units as a conservative alternative because patient tolerated 38 units well prior. Will continue to monitor.
--- NOTE | 2019-08-06 18:30 | NUR ---
Patient in room ICU 2043. I have received report from Mandy LOGAN and had the opportunity to ask questions and assume patient care.
--- NOTE | 2019-08-06 18:32 | NUR ---
Problems reprioritized. Patient report given, questions answered & plan of care reviewed with Barbara LOGAN.
[2019-08-06] MEDS: atorvastatin 10mg tablet NG SCH (20:05)
[2019-08-06] MEDS: insulin glargine (Lantus) pen - multi-dose SQ SCH (20:21)
--- NOTE | 2019-08-06 22:00 | NUR ---
Precedex on but patient becoming bradycardic and hypotensive so will turn off. Will continue to monitor patient closely.
[2019-08-07] VITALS (24 sets, daily range): BP systolic 100–168; BP diastolic 38–85
--- NOTE | 2019-08-07 | NUR ---
Patient agitated and restless. Will not let go of restraints, reaching for ET tube and not cooperating with nursing staff.Vent is peak pressuring as well. Attempted to turn precedex back on but patients heart rate drops and BP decreases. Sedation turned on at this time to attempt to calm patient.
[2019-08-07] MEDS: piperacillin/tazo 3.375gm/50ml 50 ML IV SCH ×4 (00:28→23:51)
[2019-08-07] MEDS: dexmedetomidin/NS 400mcg/100ml 100 ML IV SCH ×3 (01:07→17:39)
[2019-08-07] MEDS: insulin regular, human vial - multi-dose SQ PRN (01:59)
[2019-08-07] MEDS: mineral oil/petrolatum ophthal oint EACHEYE SCH ×2 (02:00→08:22)
[2019-08-07 02:54] LABS: BASOPHILS % (AUTO) 0.2 % (0-1); EOSINOPHILS % (AUTO) 0.1 % (0-6); HEMATOCRIT 33.5 % (42.0-52.0); HEMOGLOBIN 11.2 g/dl (14.0-17.9); LYMPHOCYTES # (AUTO) 1.2 X10'3 (1.1-4.8); LYMPHOCYTES % (AUTO) 9.3 % (21-51); MEAN CORPUSCULAR HEMOGLOBIN 32.5 PG (27.0-31.0); MEAN CORPUSCULAR HGB CONC 33.4 g/dL (33.0-36.5); MEAN CORPUSCULAR VOLUME 97.3 FL (78-98); MEAN PLATELET VOLUME 8.3 FL (7.4-10.4); MONOCYTES # (AUTO) 1.1 X10'3 (0-0.9); MONOCYTES % (AUTO) 8.3 % (2-12); NEUTROPHILS # (AUTO) 10.6 X10'3 (1.8-7.7); NEUTROPHILS % (AUTO) 82.1 % (42-75); PLATELET COUNT 503 X10'3 (140-440); RED BLOOD COUNT 3.44 X10'6 (4.70-6.10); RED CELL DISTRIBUTION WIDTH 15.8 % (11.5-14.5); WHITE BLOOD COUNT 12.9 X10'3 (4.5-11.0)
[2019-08-07] MEDS: ipratropium/albuterol 3ml nebule NEB SCH ×6 (03:03→23:43)
[2019-08-07 03:04] LABS: PARTIAL THROMBOPLASTIN TIME 29 SECONDS (22-32)
[2019-08-07 03:11] LABS: ALANINE AMINOTRANSFERASE 23 U/L (12-78); ALBUMIN 2.7 G/DL (3.4-5.0); ALBUMIN/GLOBULIN RATIO 0.7 (1.1-1.5); ALKALINE PHOSPHATASE 69 IU/L (46-116); ANION GAP 8 (8-16); ASPARTATE AMINO TRANSFERASE 28 U/L (10-37); BILIRUBIN,TOTAL 0.3 MG/DL (0.1-1.0); BLOOD UREA NITROGEN 51 MG/DL (7-18); CALCIUM 9.2 MG/DL (8.5-10.1); CHLORIDE 105 MMOL/L (99-107); GLUCOSE 110 MG/DL (70-104); MAGNESIUM 2.1 MG/DL (1.5-2.4); PHOSPHORUS 2.7 MG/DL (2.3-4.5); POTASSIUM 3.5 MMOL/L (3.5-5.1); PREALBUMIN 17.9 MG/DL (19-36); SODIUM 148 MMOL/L (135-145); TOTAL CARBON DIOXIDE 34.9 MMOL/L (24-32); TOTAL PROTEIN 6.5 G/DL (6.4-8.2); eGFR 45 ML/MIN
--- NOTE | 2019-08-07 03:54 | NUR ---
Patient has had two large soft bowel movements this shift.
[2019-08-07 04:25] LABS: ABG BASE EXCESS 9.4 mmol/L (-2.0-3.0); ABG HCO3 33.5 mmol/L (22.0-26.0); ABG OXYGEN SATURATION 96.2 % (95-98); ABG PCO2 (T) 42.7 mmHg (35.0-45.0); ABG PH (T) 7.512 (7.350-7.450); ABG PO2 (T) 80.1 mmHg (83-108); ALLEN'S TEST Positive; FCOHb 0.3 % (0.5-1.5); FMetHb 0.3 % (0.3-1.12); FO2Hb 95.6 % (94-100); MINUTE VOLUME 8 L/min; PATIENT TEMPERATURE 36.5; PEEP 5 cm H2O; RESPIRATORY RATE 14 b/min; RESPIRATORY RATE (OBSERVED) 16 b/min; TIDAL VOLUME 550 mL; TOTAL HEMOGLOBIN 12.1 G/dl (14.0-17.9)
--- NOTE | 2019-08-07 06:25 | NUR ---
Patient in room ICU 2043. I have received report from DESMOND Goldberg and had the opportunity to ask questions and assume patient care.
--- NOTE | 2019-08-07 06:25 | NUR ---
Problems reprioritized. Patient report given, questions answered & plan of care reviewed with Mikey LOGAN.
[2019-08-07] MEDS: methylnaltrexone br 12mg/0.6ml inj***SubQ only SQ SCH (06:52)
[2019-08-07] MEDS: K and/or MAG REPLACEMENT MC SCH (08:00)
[2019-08-07] MEDS: famotidine/PF 10 mg/ml inj IV SCH ×2 (08:07→21:47)
[2019-08-07] MEDS: furosemide 40mg/4ml inj IV SCH ×2 (08:16)
[2019-08-07] MEDS: colchicine 0.6mg tablet OGT SCH (08:20)
[2019-08-07] MEDS: folic acid 1mg tablet NG SCH (08:20)
[2019-08-07] MEDS: MULTIVIT-MIN/FERROUS GLUCONATE 9 MG/15 ML LIQUID NG SCH (08:20)
[2019-08-07] MEDS: predniSONE 20 mg tablet OGT SCH (08:21)
[2019-08-07] MEDS: lactobacillus rhamnosus 10,000 MMU CELLS/CAPSULE PO SCH ×2 (08:21→21:43)
[2019-08-07] MEDS: apixaban 5mg tablet OGT SCH ×2 (08:21→21:43)
[2019-08-07] MEDS: nystatin 15 GM powder TP SCH ×2 (08:21→21:43)
[2019-08-07] MEDS: flecainide 50mg tablet NG SCH ×2 (08:21→21:43)
[2019-08-07] MEDS: thiamine 100mg tablet NG SCH (08:25)
[2019-08-07] MEDS ORDERED: acetaminophen 325mg tablet PO PRN ×2 (11:02→11:03)
[2019-08-07] MEDS ORDERED: diphenhydrAMINE 25mg capsule PO PRN (11:03)
[2019-08-07] MEDS ORDERED: multivitamins, therapeutics tablet PO SCH (11:04)
[2019-08-07] MEDS: insulin Lispro (HumaLOG) vial - multi-dose SQ SCH ×2 (13:58→21:45)
--- NOTE | 2019-08-07 16:23 | NUR ---
F/U: Pt is off the ventilator and Levophed. Discontinued TF. Pt is still very weak per RN. Pt had BSS, speech therapist suggests heart healthy pureed diet, thin liquids due to difficulty chewing with absence of teeth.Po intake for lunch was around 25-50%. LBM 08/06. Will continue to monitor. Rec: 1. Continue heart healthy pureed diet, thin liquid; rec. modify to heart healthy/carb controlled diet per MD/SP 2. Routine bowel care 3. wt per rx 4. Monitor for additional protein needs Addendum: 08/07/19 at [address] Amended: Links added. Addendum: 08/07/19 at [address] MATHEW Approves
--- NOTE | 2019-08-07 18:35 | NUR ---
Problems reprioritized. Patient report given, questions answered & plan of care reviewed with Natalia LOGAN.
--- NOTE | 2019-08-07 18:39 | NUR ---
183..Patient in room ICU 2043. I have received report from Diana LOGAN and had the opportunity to ask questions and assume patient care.
[2019-08-07] MEDS: atorvastatin 10mg tablet NG SCH (21:43)
[2019-08-07] MEDS: insulin glargine (Lantus) pen - multi-dose SQ SCH (21:46)
[2019-08-07] MEDS: LORazepam 2 mg/ml vial IM PRN (21:47)
--- NOTE | 2019-08-07 22:13 | NUR ---
2200.. medicated with ativan for restless and mild agitation, with good effect.
--- NOTE | 2019-08-07 22:13 | NUR ---
2000..Assessment as noted, family visiting at bedside.
--- NOTE | 2019-08-07 23:46 | NUR ---
2300..Pt attempting to get out of bed, stating "I'm fine to get up." Also incontinent of stool x several times.
[2019-08-08] VITALS (17 sets, daily range): BP systolic 117–180; BP diastolic 44–74
--- NOTE | 2019-08-08 00:17 | NUR ---
0000..Watching television, no changes noted.
[2019-08-08] MEDS: dexmedetomidin/NS 400mcg/100ml 100 ML IV SCH (01:55)
[2019-08-08] MEDS: ipratropium/albuterol 3ml nebule NEB SCH ×3 (03:41→12:26)
[2019-08-08 03:47] LABS: BASOPHILS % (AUTO) 0.2 % (0-1); EOSINOPHILS % (AUTO) 0.1 % (0-6); HEMATOCRIT 35.9 % (42.0-52.0); HEMOGLOBIN 11.7 g/dl (14.0-17.9); LYMPHOCYTES % (AUTO) 8.3 % (21-51); MEAN CORPUSCULAR HEMOGLOBIN 31.8 PG (27.0-31.0); MEAN CORPUSCULAR HGB CONC 32.5 g/dL (33.0-36.5); MEAN PLATELET VOLUME 8.4 FL (7.4-10.4); MONOCYTES # (AUTO) 0.7 X10'3 (0-0.9); MONOCYTES % (AUTO) 5.8 % (2-12); NEUTROPHILS # (AUTO) 10.2 X10'3 (1.8-7.7); NEUTROPHILS % (AUTO) 85.6 % (42-75); PLATELET COUNT 465 X10'3 (140-440); RED BLOOD COUNT 3.67 X10'6 (4.70-6.10); RED CELL DISTRIBUTION WIDTH 15.7 % (11.5-14.5)
[2019-08-08 04:02] LABS: PARTIAL THROMBOPLASTIN TIME 28 SECONDS (22-32)
[2019-08-08 04:05] LABS: ALANINE AMINOTRANSFERASE 24 U/L (12-78); ALBUMIN 2.7 G/DL (3.4-5.0); ALBUMIN/GLOBULIN RATIO 0.7 (1.1-1.5); ALKALINE PHOSPHATASE 73 IU/L (46-116); ANION GAP 9 (8-16); ASPARTATE AMINO TRANSFERASE 31 U/L (10-37); BILIRUBIN,TOTAL 0.3 MG/DL (0.1-1.0); BLOOD UREA NITROGEN 48 MG/DL (7-18); CALCIUM 9.2 MG/DL (8.5-10.1); CHLORIDE 98 MMOL/L (99-107); CREATININE 1.55 MG/DL (0.60-1.10); GLUCOSE 310 MG/DL (70-104); MAGNESIUM 1.8 MG/DL (1.5-2.4); PHOSPHORUS 2.7 MG/DL (2.3-4.5); POTASSIUM 3.4 MMOL/L (3.5-5.1); SODIUM 139 MMOL/L (135-145); TOTAL CARBON DIOXIDE 32.5 MMOL/L (24-32); TOTAL PROTEIN 6.5 G/DL (6.4-8.2); eGFR 44 ML/MIN
[2019-08-08] MEDS: potassium Cl 20mEq/100mL bag 100 ML IV PRN (04:16)
--- NOTE | 2019-08-08 06:32 | NUR ---
0630..Problems reprioritized. Patient report given, questions answered & plan of care reviewed with Mitesh LOGAN.
[2019-08-08] MEDS: K and/or MAG REPLACEMENT MC SCH (08:00)
[2019-08-08] MEDS ORDERED: furosemide 40mg/4ml inj IV SCH (08:00)
[2019-08-08] MEDS: folic acid 1mg tablet NG SCH (08:13)
[2019-08-08] MEDS: predniSONE 20 mg tablet OGT SCH (08:13)
[2019-08-08] MEDS: flecainide 50mg tablet NG SCH (08:13)
[2019-08-08] MEDS: apixaban 5mg tablet OGT SCH (08:13)
[2019-08-08] MEDS: lactobacillus rhamnosus 10,000 MMU CELLS/CAPSULE PO SCH (08:13)
[2019-08-08] MEDS: famotidine/PF 10 mg/ml inj IV SCH (08:14)
[2019-08-08] MEDS: piperacillin/tazo 3.375gm/50ml 50 ML IV SCH (08:14)
[2019-08-08] MEDS: nystatin 15 GM powder TP SCH (08:55)
[2019-08-08] MEDS: thiamine 100mg tablet NG SCH (08:55)
[2019-08-08] MEDS: insulin Lispro (HumaLOG) vial - multi-dose SQ SCH ×2 (08:58→14:03)
--- NOTE | 2019-08-08 09:02 | NUR ---
I have reviewed and agree with all medications administered and interventions performed by [employer] TECHNICIAN Student Umberto Carpenter
--- NOTE | 2019-08-08 12:54 | NUR ---
sent home with patient's personal belongings: Jeans, belt, shoes, socks, shirt, underwear, phone drop press hand, watch.
--- NOTE | 2019-08-08 16:40 | NUR ---
VALERIA took patient to [facility]; report called to Patrick LOGAN with all questions answered. Family notified. Sent with cell phone, hearing aidsx2, and glasses.
[2019-08-09] MEDS ORDERED: furosemide 40mg/4ml inj IV SCH (08:00)
[2019-08-09] MEDS ORDERED: prednisone 10mg tablet PO SCH (08:00)
== END 2019-08-08 16:40 | DRG 353 ==
LOC: ER 10:56 → ED HOLD 14:53 → SUR 3N 17:30 → ICU 2S 07-27 10:10
PROVIDERS: ADMIT Family Medicine; ATTEND Internal Medicine Critical Care Medicine
PROC: 0D9670Z Drainage of Stomach with Drainage Device, Via Natural or Artificial Opening (ICD-10-PCS; 2019-07-26)
PROC: 0WQF0ZZ Repair Abdominal Wall, Open Approach (ICD-10-PCS; 2019-07-27)
PROC: 0DQV0ZZ Repair Mesentery, Open Approach (ICD-10-PCS; 2019-07-27)
PROC: 0WQF0ZZ Repair Abdominal Wall, Open Approach (ICD-10-PCS; 2019-07-27)
PROC: 0BH17EZ Insertion of Endotracheal Airway into Trachea, Via Natural or Artificial Opening (ICD-10-PCS; 2019-07-27)
PROC: 03HY32Z Insertion of Monitoring Device into Upper Artery, Percutaneous Approach (ICD-10-PCS; 2019-07-27)
PROC: 4A133B1 Monitoring of Arterial Pressure, Peripheral, Percutaneous Approach (ICD-10-PCS; 2019-07-27)
PROC: 4A133J1 Monitoring of Arterial Pulse, Peripheral, Percutaneous Approach (ICD-10-PCS; 2019-07-27)
PROC: 5A1955Z Respiratory Ventilation, Greater than 96 Consecutive Hours (ICD-10-PCS; principal; 2019-07-27 14:51)
PROC: 02HV33Z Insertion of Infusion Device into Superior Vena Cava, Percutaneous Approach (ICD-10-PCS; 2019-07-30)
PROC: B548ZZA Ultrasonography of Superior Vena Cava, Guidance (ICD-10-PCS; 2019-07-30)
DX: K42.0 Umbilical hernia with obstruction, without gangrene (principal); R57.0 Cardiogenic shock; J96.90 Respiratory failure, unspecified, unspecified whether with hypoxia or hypercapnia; J18.9 Pneumonia, unspecified organism; N17.9 Acute kidney failure, unspecified; E87.0 Hyperosmolality and hypernatremia; E11.22 Type 2 diabetes mellitus with diabetic chronic kidney disease; E11.65 Type 2 diabetes mellitus with hyperglycemia; E66.9 Obesity, unspecified; E78.00 Pure hypercholesterolemia, unspecified; E78.5 Hyperlipidemia, unspecified; G47.30 Sleep apnea, unspecified; G89.4 Chronic pain syndrome; N18.3 Chronic kidney disease, stage 3 (moderate); I12.9 Hypertensive chronic kidney disease with stage 1 through stage 4 chronic kidney disease, or unspecified chronic kidney disease; I48.91 Unspecified atrial fibrillation; F32.9 Major depressive disorder, single episode, unspecified; M19.90 Unspecified osteoarthritis, unspecified site; F10.20 Alcohol dependence, uncomplicated; K21.9 Gastro-esophageal reflux disease without esophagitis; Z66 Do not resuscitate; Z79.02 Long term (current) use of antithrombotics/antiplatelets; Z88.6 Allergy status to analgesic agent; Z79.899 Other long term (current) drug therapy; Z79.4 Long term (current) use of insulin; Z80.3 Family history of malignant neoplasm of breast; Z87.11 Personal history of peptic ulcer disease; Z90.49 Acquired absence of other specified parts of digestive tract; Z98.84 Bariatric surgery status; Z79.84 Long term (current) use of oral hypoglycemic drugs; Z82.49 Family history of ischemic heart disease and other diseases of the circulatory system
CPT/HCPCS: 36415; 36569; 36600; 71045; 74018; 74176; 76937; 80048; 80053; 80061; 80202; 81001; 82570; 82803; 82810; 82948; 83036; 83605; 83690; 83735; 83880; 84100; 84132; 84134; 84300; 84443; 85018; 85025; 85610; 85730; 86885; 86900; 86901; 86920; 87040; 87070; 87077; 87081; 87088; 87186; 87207; 92508; 92616; 93005; 93308; 93970; 94002; 94003; 94640; 94668; 94760; 96361; 96374; 96375; 97110; 97161; 97530; 97535; 99285; A4618; A6446; A7000; C9113; G0378; J0692; J1815; J1940; J2060; J2212; J2250; J2270; J2405; J2543; J2704; J2765; J3010; J3370; J3411; J3475; J3480; J3490; J7030; J7040; J7050; J7060; J7120; J7512; P9045; P9047; Q0163; Q9963

== ENCOUNTER 2019-12-30 14:55 | Emergency (ER) | payer MEDICARE ==
[~2019-12-30] VITALS: Ht 175.3 cm; Wt 130.0 kg
[~2019-12-30 14:55] MED LIST changes: +FLEC100T2 PO; -HYDR25TA4 PO; +INSU100V12 SQ; +METO50TA17 PO; +VENL-190 PO; -etomidate 2mg/ml inj. ONE; -sod chloride 0.9% 10ml flush syringe IV ONE
[2019-12-30 15:46] VITALS: BP 172/75
[2019-12-30 16:04] LABS: BASOPHILS # (AUTO) 0.1 X10'3 (0-0.2); BASOPHILS % (AUTO) 0.9 % (0-1); EOSINOPHILS # (AUTO) 0.1 X10'3 (0-0.9); EOSINOPHILS % (AUTO) 0.8 % (0-6); HEMATOCRIT 35.6 % (42.0-52.0); HEMOGLOBIN 10.9 g/dl (14.0-17.9); LYMPHOCYTES # (AUTO) 0.9 X10'3 (1.1-4.8); LYMPHOCYTES % (AUTO) 9.7 % (21-51); MEAN CORPUSCULAR HEMOGLOBIN 24.1 PG (27.0-31.0); MEAN CORPUSCULAR HGB CONC 30.8 g/dL (33.0-36.5); MEAN CORPUSCULAR VOLUME 78.1 FL (78-98); MEAN PLATELET VOLUME 7.5 FL (7.4-10.4); MONOCYTES # (AUTO) 0.6 X10'3 (0-0.9); MONOCYTES % (AUTO) 6.7 % (2-12); NEUTROPHILS # (AUTO) 7.7 X10'3 (1.8-7.7); NEUTROPHILS % (AUTO) 81.9 % (42-75); PLATELET COUNT 327 X10'3 (140-440); RED BLOOD COUNT 4.55 X10'6 (4.70-6.10); RED CELL DISTRIBUTION WIDTH 23.7 % (11.5-14.5); WHITE BLOOD COUNT 9.4 X10'3 (4.5-11.0)
[2019-12-30 16:17] LABS: ALANINE AMINOTRANSFERASE 20 U/L (12-78); ALBUMIN 3.4 G/DL (3.4-5.0); ALBUMIN/GLOBULIN RATIO 0.9 (1.1-1.5); ALKALINE PHOSPHATASE 133 IU/L (46-116); ANION GAP 5 (8-16); ASPARTATE AMINO TRANSFERASE 32 U/L (10-37); BILIRUBIN,TOTAL 0.5 MG/DL (0.1-1.0); BLOOD UREA NITROGEN 17 MG/DL (7-18); BUN/CREATININE RATIO 13.5 (5.4-32.0); CALCIUM 8.8 MG/DL (8.5-10.1); CHLORIDE 103 MMOL/L (99-107); CREATININE 1.26 MG/DL (0.60-1.10); GLUCOSE 135 MG/DL (70-104); SODIUM 140 MMOL/L (135-145); TOTAL CARBON DIOXIDE 31.8 MMOL/L (24-32); TOTAL PROTEIN 7.1 G/DL (6.4-8.2); eGFR 55 ML/MIN
[2019-12-30 16:26] LABS: ANISOCYTOSIS 3+; MICROCYTOSIS 1+; PLATELET ESTIMATE NORMAL
== END 2019-12-30 16:41 | disposition home or self-care (01) ==
LOC: ER 14:56
DX: R10.32 Left lower quadrant pain (principal); I48.91 Unspecified atrial fibrillation; E78.00 Pure hypercholesterolemia, unspecified; I10 Essential (primary) hypertension; K21.9 Gastro-esophageal reflux disease without esophagitis; E11.9 Type 2 diabetes mellitus without complications; M19.90 Unspecified osteoarthritis, unspecified site; F32.9 Major depressive disorder, single episode, unspecified; Z90.49 Acquired absence of other specified parts of digestive tract; Z98.890 Other specified postprocedural states; Z72.89 Other problems related to lifestyle; Z88.6 Allergy status to analgesic agent; Z88.5 Allergy status to narcotic agent; Z79.4 Long term (current) use of insulin; Z79.899 Other long term (current) drug therapy; W18.39XA Other fall on same level, initial encounter; Y93.89 Activity, other specified; Y92.89 Other specified places as the place of occurrence of the external cause; Y99.8 Other external cause status
CPT/HCPCS: 36415; 80053; 85025; 85610; 99284

== ENCOUNTER 2020-05-23 12:19 | Emergency (ER) | payer MEDICARE ==
[~2020-05-23] VITALS: Ht 177.8 cm; Wt 117.3 kg
[2020-05-23] MEDS ORDERED: metoprolol tartrate 50mg tablet PO ONE (12:50)
[2020-05-23 13:16] LABS: BASOPHILS # (AUTO) 0.1 X10'3 (0-0.2); EOSINOPHILS # (AUTO) 0.1 X10'3 (0-0.9); LYMPHOCYTES # (AUTO) 1.2 X10'3 (1.1-4.8); MEAN CORPUSCULAR HEMOGLOBIN 31.5 PG (27.0-31.0); MEAN PLATELET VOLUME 7.7 FL (7.4-10.4); NEUTROPHILS # (AUTO) 4.8 X10'3 (1.8-7.7); WHITE BLOOD COUNT 6.7 X10'3 (4.5-11.0)
[2020-05-23 13:18] LABS: BASOPHILS % (AUTO) 0.8 % (0-1); EOSINOPHILS % (AUTO) 1.7 % (0-6); HEMATOCRIT 48.2 % (42.0-52.0); HEMOGLOBIN 15.9 g/dl (14.0-17.9); LYMPHOCYTES % (AUTO) 17.8 % (21-51); MEAN CORPUSCULAR HGB CONC 33.1 g/dL (33.0-36.5); MEAN CORPUSCULAR VOLUME 95.3 FL (78-98); MONOCYTES # (AUTO) 0.5 X10'3 (0-0.9); MONOCYTES % (AUTO) 7.9 % (2-12); NEUTROPHILS % (AUTO) 71.8 % (42-75); PLATELET COUNT 247 X10'3 (140-440); RED BLOOD COUNT 5.05 X10'6 (4.70-6.10); RED CELL DISTRIBUTION WIDTH 17.6 % (11.5-14.5)
[2020-05-23 13:30] LABS: ALANINE AMINOTRANSFERASE 30 U/L (12-78); ALBUMIN 3.5 G/DL (3.4-5.0); ALKALINE PHOSPHATASE 123 IU/L (46-116); ANION GAP 8 (8-16); ASPARTATE AMINO TRANSFERASE 35 U/L (10-37); BILIRUBIN,TOTAL 0.7 MG/DL (0.1-1.0); BLOOD UREA NITROGEN 25 MG/DL (7-18); BUN/CREATININE RATIO 15.4 (5.4-32.0); CALCIUM 9.3 MG/DL (8.5-10.1); CHLORIDE 103 MMOL/L (99-107); CREATININE 1.62 MG/DL (0.60-1.10); GLUCOSE 181 MG/DL (70-104); POTASSIUM 4.2 MMOL/L (3.5-5.1); SODIUM 139 MMOL/L (135-145); TOTAL CARBON DIOXIDE 27.8 MMOL/L (24-32); eGFR 41 ML/MIN
--- NOTE | 2020-05-23 14:10 | NUR ---
DISCUSSED WITH DR. HAIDER PTS CURRENT BP AND PT WITH HX OF CHRONIC HTN. PT TO BE DC'D HOME AND F/U WITH PCP.
[2020-05-23 14:26] VITALS: BP 182/111
== END 2020-05-23 14:47 | disposition home or self-care (01) ==
LOC: ER 12:20
DX: R06.02 Shortness of breath (principal); I10 Essential (primary) hypertension; I48.91 Unspecified atrial fibrillation; E78.00 Pure hypercholesterolemia, unspecified; G47.30 Sleep apnea, unspecified; K21.9 Gastro-esophageal reflux disease without esophagitis; E11.9 Type 2 diabetes mellitus without complications; M19.90 Unspecified osteoarthritis, unspecified site; F32.9 Major depressive disorder, single episode, unspecified; Z90.49 Acquired absence of other specified parts of digestive tract; Z98.61 Coronary angioplasty status; Z90.89 Acquired absence of other organs; Z98.890 Other specified postprocedural states; Z88.5 Allergy status to narcotic agent; Z88.6 Allergy status to analgesic agent; Z79.4 Long term (current) use of insulin; Z79.899 Other long term (current) drug therapy
CPT/HCPCS: 36415; 71045; 80053; 83880; 84484; 85025; 93005; 99285